=== PATIENT | female | born 1945 | race Caucasian/White ===

== ENCOUNTER 2022-12-02 18:27 | Inpatient (IN) ==
[2022-12-02 20:27] LABS: Basophils # (auto) 0.05 K/uL (0-0.2); Basophils % (auto) 0.7 %; Eosinophils # (auto) 0.14 K/uL (0-0.50); Hematocrit (blood only) 49.9 % (34.1-44.9); Hemoglobin 17.3 g/dl (12.0-16.0); Immature Granulocytes # (auto) 0.01 K/uL (0.00-0.02); Immature Granulocytes % (auto) 0.1 %; Lymphocytes # (auto) 1.86 K/uL (1.2-3.4); Lymphocytes % (auto) 27.2 %; Mean Corpuscular Hgb Conc 34.7 g/dL (32.0-36.0); Mean Corpuscular Volume 86.5 fL (80.0-100.0); Mean Platelet Volume 9.8 fL (9.4-12.3); Monocytes # (auto) 0.55 K/uL (0.24-0.82); Monocytes % (auto) 8.1 %; Neutrophils # (auto) 4.22 K/uL (1.4-6.5); Neutrophils % (auto) 61.9 %; Platelet Count 232 K/uL (130-400); RDW Standard Deviation 37.7 fL (36.4-46.3); Red Blood Count 5.77 M/uL (3.93-5.22); White Blood Count 6.83 K/ul (4.8-10.8)
[2022-12-02 20:40] LABS: INR 1.1 (0.9-1.1); Partial Thromboplastin Time 26.9 Seconds (21.0-31.0); Prothrombin Time 11.4 Seconds (9.0-12.0)
--- NOTE | 2022-12-02 20:43 | XRay Report ---
XR chest 1V portable HISTORY: heart issues COMPARISON: None. FINDINGS: The lungs are clear. Cardiac silhouette is normal in size. No pleural effusions. No pneumot horax. IMPRESSION: No acute process. ACT 112: Negative or not required by law. Electronically signed by: Dhruv Houser M.D. 12/02/2022 8:42 PM
[2022-12-02 20:52] LABS: Troponin I High Sensitivity 7.1 pg/ml (0-14)
[2022-12-02 21:12] LABS: Albumin Globulin Ratio 1.3 (0.9-2); Albumin Level 4.6 gm/dl (3.4-5.0); BUN Creatinine Ratio 21.8 (10-20); Bilirubin,Total 0.5 mg/dl (0.2-1.0); Calcium 9.8 mg/dl (8.5-10.1); Creatinine Clr Calc Pharmacy 52.2 ml/min; Est GFR (African American) 83.8 ml/min; Est GFR (Non-African American) 72.3 ml/min; Globulin 3.6 gm/dl (2.5-4.0); Total Protein 8.2 gm/dl (6.0-8.3)
[2022-12-02] MEDS ORDERED: Heparin IV Adult Wt-Based Standard *NO* Bolus Protocol IV ONE (22:01)
--- NOTE | 2022-12-02 22:01 | Emergency Department Note ---
Impression & Plan New onset a-fib, Dizziness ED Provider Note NAME: QASIM PETERS AGE: 77 SEX: F : 1945 ARRIVES VIA: Walk-In INFORMANT: Patient, ED PROVIDER(S): Dereje Figueroa MD CHIEF COMPLAINT: Outpatient referral, abnormal EKG MEDICAL DECISION MAKING: Patient presents due to concern for an abnormal EKG which showed A. fib and was referred here for further evaluation and treatment. Patient did have blood work completed and was seen in a triage area as there were no rooms in which the patient could be seen initially. Blood work was reviewed and fairly unremarkable. EKG does show A. fib. The patient has no prior medical problems or history. I did speak with nursing to ensure that the patient could be roomed. The patient was subsequently roomed. Heparin was ordered. I did speak the on-call hospitalist Dr. Gutierrez and the patient was admitted to the medicine service. Critical Care: I have personally spent 45 minutes of critical care time in direct management of this patient. This includes bedside care, interpretation of diagnostic studies, and testing, discussion with consultants, patient, and family members, and other require inpatient management activities. This 4 minutes is in excess of all separately billable procedures. Prior /Outside records reviewed: none Differential diagnosis: Benign positional vertigo, arrythmia, dehydration, hypovolemia, anemia, tumor, infection, hypoglycemia, electrolyte abnormalities, cardiac sources, intracerebral event, toxicologic, neurologic, as well as other pathologies. Diagnostics, as interpreted by me: ECG: A fib, rate of 90, normal QRS, Left axis deviation, nonspecific T abnormality Cardiac monitoring: An order was placed for continuous cardiac monitoring. The monitor shows a rate of 85 with irregular rhythm. Patient was placed on pulse oximetry Medical decision rules: none Imaging studies: See below HPI: Patient presents due to concern for abnormal outpatient EKG. The patient did have a bout of dizziness several days ago and it followed up for an evaluation. EKG was performed which did show the A. fib. The patient denies any prior history of palpitations or arrhythmia. Patient denies any falls or trauma. Patient does not take any medications on a regular basis and has no known past medical or surgical history. Patient denies any alcohol tobacco or drug use no supplements or stimulants. The patient denies any syncope or presyncope. Patient has no strokelike symptoms. Patient does not take blood thinning medications. No additional exacerbating or remitting factors. Patient is accompanied by her today. PAST MEDICAL HISTORY: See Below PAST SURGICAL HISTORY: See Below SOCIAL HISTORY: See Below HOME MEDICATIONS: See Below ALLERGIES: See Below VITALS: See Below PHYSICAL EXAMINATION: GENERAL: NAD, wearing a mask, non-toxic. Wearing glasses. EYE EXAM: Normal conjunctiva. PERRL, no anisocoria and EOM's grossly intact w/o pain. NECK: Supple, no nuchal rigidity, no adenopathy, non-tender. No signs of meningismus. FROM of the neck with good chin to chest and neck extension. No stridor. LUNGS: Clear to auscultation. Normal chest wall mechanics. HEART: Irregularly irregular, no MRG. ABDOMEN: Abdomen soft, non-tender, normo-active bowel sounds, no masses, no rebound or guarding. BACK: No CVA TTP. SKIN: No rashes and no bruising. UPPER EXTREMITIES: Upper extremities are grossly normal. LOWER EXTREMITIES: Grossly normal, no edema. NEURO EXAM: A&O x3, cranial nerves II-XII grossly intact, normal speech, moves all 4 extremities. 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 Required: No Beliefs That Will Affect Care: None Current Living Situation: Spouse Feels Safe at Home: Yes Safety Concerns: Feels Safe At This Time Assistive Devices: None Allergies Allergies Allergy/AdvReac Type Severity Reaction Status Date / Time No Known Allergies Allergy Verified 12/02/22 22:26 Home Meds Home Medications Medication Instructions Recorded Confirmed multivitamin 1 tab PO DAILY 12/02/22 12/02/22 Previous Rx's Medication Instructions Recorded apixaban 5 mg tablet (Eliquis) 5 mg PO BID #90 tabs 12/03/22 metoprolol succinate 25 mg 12.5 mg PO DAILY #30 tabs 12/03/22 tablet,extended release 24 hr Results & Data (ED) Vital Signs Vital Signs - 24 hr 12/02/22 18:34 Temperature 35.9 C L Temperature Source Temporal Artery Scan Pulse Rate 91 H Respiratory Rate 19 Respiratory Effort / Characteristics Non-Labored Spontaneous Respiratory Depth Normal Blood Pressure 161/94 H Blood Pressure Mean 116 Pulse Oximetry 97 Oxygen Delivery Method Room Air Sepsis Recent Fever Within 48 Hours No Sepsis New/Unexplained Change in Mental Status N/A Sepsis Action Taken by Nursing No Action Required Home Medications Current Medication List: was personally reviewed by me Laboratory Data Attestation: I reviewed the patient's lab results. 12/02/22 20:06 12/02/22 20:06 Lab Results 12/02/22 12/02/22 12/02/22 Range/Units 20:06 20:06 20:06 WBC 6.83 (4.8-10.8) K/ul RBC 5.77 H (3.93-5.22) M/uL Hgb 17.3 H (12.0-16.0) g/dl Hct 49.9 H (34.1-44.9) % MCV 86.5 (80.0-100.0) fL MCH 30.0 (25.0-34.0) pg MCHC 34.7 (32.0-36.0) g/dL RDW Std Deviation 37.7 (36.4-46.3) fL RDW Coeff of Isabela 12.0 (11.5-14.5) % Plt Count 232 (130-400) K/uL MPV 9.8 (9.4-12.3) fL Immature Gran % (Auto) 0.1 % Neut % (Auto) 61.9 % Lymph % (Auto) 27.2 % [place] % (Auto) 8.1 % Eos % (Auto) 2.0 % Baso % (Auto) 0.7 % Neut # (Auto) 4.22 (1.4-6.5) K/uL Lymph # (Auto) 1.86 (1.2-3.4) K/uL [place] # (Auto) 0.55 (0.24-0.82) K/uL Eos # (Auto) 0.14 (0-0.50) K/uL Baso # (Auto) 0.05 (0-0.2) K/uL Immature Gran # (Auto) 0.01 (0.00-0.02) K/uL PT 11.4 (9.0-12.0) Seconds INR 1.1 (0.9-1.1) APTT 26.9 (21.0-31.0) Seconds PTT Ratio 1.0 Sodium 141 (136-145) mmol/L Potassium 4.0 (3.5-5.1) mmol/L Chloride 105 (98-107) mmol/L Carbon Dioxide 28 (21-32) mmol/L Anion Gap 8 (3-11) BUN 17 (6-23) mg/dl Creatinine 0.78 (0.6-1.2) mg/dl Est Cr Clr Drug Dosing 52.2 ml/min Est GFR ( Amer) 83.8 ml/min Est GFR (Non-Af Amer) 72.3 ml/min BUN/Creatinine Ratio 21.8 H (10-20) Glucose 105 H (70-99(Fasting)) mg/dl Calcium 9.8 (8.5-10.1) mg/dl Total Bilirubin 0.5 (0.2-1.0) mg/dl AST 25 (13-39) U/L ALT 23 (7-52) U/L Alkaline Phosphatase 92 (34-104) U/L Troponin I High Sens 7.1 (0-14) pg/ml Total Protein 8.2 (6.0-8.3) gm/dl Albumin 4.6 (3.4-5.0) gm/dl Globulin 3.6 (2.5-4.0) gm/dl Albumin/Globulin Ratio 1.3 (0.9-2) SARS-CoV-2, RNA, NAAT (NEGATIVE) 12/02/22 Range/Units 22:30 WBC (4.8-10.8) K/ul RBC (3.93-5.22) M/uL Hgb (12.0-16.0) g/dl Hct (34.1-44.9) % MCV (80.0-100.0) fL MCH (25.0-34.0) pg MCHC (32.0-36.0) g/dL RDW Std Deviation (36.4-46.3) fL RDW Coeff of Isabela (11.5-14.5) % Plt Count (130-400) K/uL MPV (9.4-12.3) fL Immature Gran % (Auto) % Neut % (Auto) % Lymph % (Auto) % [place] % (Auto) % Eos % (Auto) % Baso % (Auto) % Neut # (Auto) (1.4-6.5) K/uL Lymph # (Auto) (1.2-3.4) K/uL [place] # (Auto) (0.24-0.82) K/uL Eos # (Auto) (0-0.50) K/uL Baso # (Auto) (0-0.2) K/uL Immature Gran # (Auto) (0.00-0.02) K/uL PT (9.0-12.0) Seconds INR (0.9-1.1) APTT (21.0-31.0) Seconds PTT Ratio Sodium (136-145) mmol/L Potassium (3.5-5.1) mmol/L Chloride (98-107) mmol/L Carbon Dioxide (21-32) mmol/L Anion Gap (3-11) BUN (6-23) mg/dl Creatinine (0.6-1.2) mg/dl Est Cr Clr Drug Dosing ml/min Est GFR ( Amer) ml/min Est GFR (Non-Af Amer) ml/min BUN/Creatinine Ratio (10-20) Glucose (70-99(Fasting)) mg/dl Calcium (8.5-10.1) mg/dl Total Bilirubin (0.2-1.0) mg/dl AST (13-39) U/L ALT (7-52) U/L Alkaline Phosphatase (34-104) U/L Troponin I High Sens (0-14) pg/ml Total Protein (6.0-8.3) gm/dl Albumin (3.4-5.0) gm/dl Globulin (2.5-4.0) gm/dl Albumin/Globulin Ratio (0.9-2) SARS-CoV-2, RNA, NAAT NEGATIVE (NEGATIVE) Administered Medications Discontinued Medications Apixaban (Apixaban 5 Mg Tablet) 5 mg PO BID YULIA Stop: 01/02/23 09:59 Last Admin: 12/03/22 11:35 Dose: 5 mg Documented By: MAT Heparin Sodium/Dextrose (Heparin Iv Adult Wt-Based Standard *No* Bolus Protocol) 1 each IV ONE ONE; Protocol Stop: 12/02/22 22:02 Last Admin: 12/02/22 22:27 Dose: 1 each Documented By: ETHAN Heparin Sodium/Dextrose (Heparin Sodium/Dextrose) 25,000 units in 500 mls @ 20 mls/hr IV .Q24H YULIA; Protocol Stop: 01/01/23 22:29 Last Titration: 12/03/22 11:30 Dose: 0 units/hr, 0 mls/hr Documented By: MAT Co-signed By: LILIAM Titration: 12/03/22 05:45 Dose: 1,050 units/hr, 21 mls/hr Documented By: JANY Co-signed By: ANGEL Admin: 12/02/22 22:26 Dose: 1,000 units/hr, 20 mls/hr Documented By: ETHAN Co-signed By: KWABENA Dextrose/Sodium Chloride (D5w And 1/2nss) 1,000 mls @ 80 mls/hr IV .[id number] [facility] Stop: 12/03/22 13:46 Last Admin: 12/03/22 02:05 Dose: 80 mls/hr Documented By: JANY Metoprolol Succinate (Metoprolol Succ 25mg Ext Rel Tab) 12.5 mg PO QAM [facility] Stop: 01/02/23 09:44 Last Admin: 12/03/22 11:36 Dose: 12.5 mg Documented By: MAT Miscellaneous (Stop Order) 1 each N/A ONE ONE Stop: 12/03/22 10:01 Last Admin: 12/03/22 11:36 Dose: 1 each Documented By: MAT Multivitamins (Multivitamin Tab) 1 tab PO DAILY [facility] Stop: 01/02/23 08:59 Last Admin: 12/03/22 08:43 Dose: Not Given Documented By: MAT Imaging Data Radiologist's Impression: Chest X-Ray 12/02/22 18:37 XR chest 1V portable HISTORY: heart issues COMPARISON: None. FINDINGS: The lungs are clear. Cardiac silhouette is normal in size. No pleural effusions. No pneumothorax. IMPRESSION: No acute process. ACT 112: Negative or not required by law. Electronically signed by: Dhruv Houser M.D. 12/02/2022 8:42 PM Discharge Plan Visit Data Chief Complaint: Abnormal Labs/Diagnostic Testing Stated Complaint: REF BY DOC,ABNORMAL LABS ED Provider: Dereje Figueroa Discharge Problem: New onset a-fib, Dizziness Patient Disposition: Admitted As Inpatient Discharge Instructions Interventions: ED Discharge Assessment Last Done: 12/03/22 01:12
[2022-12-02] MEDS ORDERED: HEPARIN SODIUM/DEXTROSE 25,000 UNITS/500 ML BAG IV SCH (22:30)
[2022-12-03] MEDS ORDERED: POLYETHYLENE (MIRALAX) 17 GM PACK PO PRN (01:17)
[2022-12-03] MEDS ORDERED: D5W AND 1/2NSS 1,000 ML IV SCH (01:17)
[2022-12-03] MEDS ORDERED: ACETAMINOPHEN 325 MG TAB PO PRN (01:17)
[2022-12-03] MEDS ORDERED: METOPROLOL TARTRATE 1 MG/ML VIAL IV PRN (01:17)
[2022-12-03] MEDS ORDERED: NITROGLYCERIN SL 0.4 MG/TAB TAB SL PRN (01:17)
[2022-12-03 04:57] LABS: Basophils # (auto) 0.05 K/uL (0-0.2); Basophils % (auto) 0.6 %; Eosinophils # (auto) 0.21 K/uL (0-0.50); Eosinophils % (auto) 2.5 %; Hematocrit (blood only) 43.1 % (34.1-44.9); Hemoglobin 15.1 g/dl (12.0-16.0); Immature Granulocytes # (auto) 0.02 K/uL (0.00-0.02); Immature Granulocytes % (auto) 0.2 %; Lymphocytes # (auto) 3.52 K/uL (1.2-3.4); Lymphocytes % (auto) 42.4 %; Mean Corpuscular Volume 85.7 fL (80.0-100.0); Mean Platelet Volume 9.7 fL (9.4-12.3); Monocytes # (auto) 0.53 K/uL (0.24-0.82); Monocytes % (auto) 6.4 %; Neutrophils # (auto) 3.97 K/uL (1.4-6.5); Neutrophils % (auto) 47.9 %; Platelet Count 192 K/uL (130-400); RDW Coefficient of Variation 11.9 % (11.5-14.5); RDW Standard Deviation 36.9 fL (36.4-46.3); Red Blood Count 5.03 M/uL (3.93-5.22)
[2022-12-03 05:25] LABS: Partial Thromboplastin Ratio 1.7
[2022-12-03 05:28] LABS: BUN Creatinine Ratio 22.7 (10-20); Calcium 8.7 mg/dl (8.5-10.1); Chol HDL Ratio 6.1 (0-5); Creatinine Clr Calc Pharmacy 61.5 ml/min; Est GFR (African American) 97.4 ml/min; Magnesium 2.2 mg/dl (1.7-2.4); Partial Thromboplastin Time 45.8 Seconds (21.0-31.0); Potassium 3.6 mmol/L (3.5-5.1); Troponin I High Sensitivity 5.6 pg/ml (0-14)
--- NOTE | 2022-12-03 08:11 | History and Physical Report ---
DATE OF ADMISSION: 12/02/2022. CHIEF COMPLAINT: Dizziness, new onset atrial fibrillation. HISTORY OF PRESENT ILLNESS: A 77-year-old female with past medical history significant for hyperlipidemia, currently not on any medications, history of uterovaginal prolapse, history of colonic polyps, went to PCP today because of dizziness. The patient says she has had dizziness couple of nights ago, she slept in the morning she was fine.She went to PCP today and the EKG done, which shows new AFib and was sent here. Rates are under control. The patient currently has no dizziness. Denies any chest pain, no shortness of breath, no cough, no earaches, no runny nose, no sore throat. Appetite is okay. No nausea, no abdominal pain. Normal bowel and bladder movements. No swelling in the legs. Resting comfortably and hemodynamically stable. ALLERGIES: No known drug allergies. PAST MEDICAL HISTORY: As mentioned above. PAST SURGICAL HISTORY: Colonoscopy, EGDs, appendectomy, repair of incisional hernia. MEDICATIONS: The patient on multivitamins daily. FAMILY HISTORY: Significant for mother has rheumatoid arthritis, diabetes; father had colon cancer diagnosed at age of 72; brother has diabetes; sister has diabetes; daughter has kidney cancer. SOCIAL HISTORY: , no smoking, no alcohol, no drug use. REVIEW OF SYSTEMS: As per HPI. Rest of review of systems is negative. PHYSICAL EXAMINATION: GENERAL: The patient is of moderate build, not in acute distress. VITAL SIGNS: Temperature 35.9, pulse 83, respiratory rate 18, blood pressure 156/88, oxygen 97% on room air. HEENT: Pupils equal, round and reactive to light. Oral mucosa moist. NECK: No JVD, no neck masses. CARDIOVASCULAR: S1 and S2 heard. Regular rate and rhythm. No murmur, no gallop. RESPIRATORY SYSTEM: Normal AP diameter. No accessory muscle use. No wheezing or crackles. ABDOMEN: Soft, bowel sounds present, nontender, no distention. CENTRAL NERVOUS SYSTEM: Cranial nerves II-XII grossly intact, nonfocal. EXTREMITIES: No edema, no erythema. LABORATORY DATA: WBC 6.8, hemoglobin 17.3, hematocrit 49.9, platelets 232. PT 11.4, INR 1.1, APTT 26.9. Sodium 141, potassium 4, chloride 105, bicarbonate 28, BUN 17, creatinine 0.7, serum glucose 105, calcium 9.8, total bilirubin 0.5, AST 25, ALT 23, alkaline phosphatase 92. Troponin I high sensitivity 7.1. SARS-CoV-2 rapid test pending. IMAGING DATA: Chest x-ray, no acute findings. EKG: AFib at the rate of 90, left axis deviation. ASSESSMENT AND PLAN: This is a 77-year-old female who presents with new onset atrial fibrillation. 1. Dizziness, new onset atrial fibrillation, currently dizziness is resolved. Went to the PCP today for the dizziness and found to have atrial fibrillation, rate is under control. Started on IV heparin which will be continued. We will follow echocardiogram, serial cardiac enzymes. We will keep her n.p.o. until seen by Cardiology. IV Lopressor p.r.n. as the rate are controlled currently. 2. Hypertension, could be situational. Blood pressure is running high. We will monitor. 3. History of hyperlipidemia, not on any medication. Follow lipid profile. 4. Deep venous thrombosis prophylaxis: On IV heparin. DISPOSITION: Admit to tele floor. PT/OT prior to discharge. Social service to help with discharge planning. Level 1 full code. Job ID: [id number] [facility]
[2022-12-03] MEDS ORDERED: MULTIVITAMIN TAB PO SCH (09:00)
[2022-12-03] MEDS ORDERED: METOPROLOL SUCC 25MG EXT REL TAB PO SCH (09:45)
[2022-12-03] MEDS ORDERED: APIXABAN 5 MG TABLET PO SCH (10:00)
--- NOTE | 2022-12-03 10:20 | Cardiology Consultation ---
Date of Consultation December 03, 2022 Assessment & Plan (1) Atrial fibrillation with controlled ventricular rate: (2) Hypertension: (3) Dyslipidemia: Plan Patient presenting from PCP office with new onset atrial fibrillation, duration unknown. Controlled rates at rest, with mild elevation with activity. She is currently asymptomatic. Long discussion today in regards to pathophysiology and treatment options of atrial fibrillation. Since the duration is unknown and she is asymptomatic, would recommend ongoing rate control and anticoagulation for at least 4 weeks. At that time, could consider DCCV as an outpatient. [id number] score of 4 (sex, age, HTN) with recommendations for usp anticoagulation. She is agreeable. IV heparin to be discontinued and Eliquis 5 mg BID initiated this morning Start metoprolol succinate 12.5 mg daily for rate control and HTN. Titrate as tolerated/needed. She has significantly uncontrolled lipids and likely will require statin. it appears she previously declined therapy as an outpatient in 2020. Since we are starting 2 new medications at this time (metoprolol and Eliquis), will await to initiate as outpatient. Await echo results, currently pending. Recommend patient ambulating in the hallways and as long as HR's are controlled, and she is feeling well, ancipitate discharge later today with the above medications. Will see patient in 2-4 weeks for hospital f/u. Case discussed with Dr. Tello. Supervising Physician Co-Signing Physician Notes Patient seen and examined with Tatiana Valdez PA-C. Agree with findings and assessment as above. Pt asymptomatic with newly discovered afib. Will follow a rate control strategy currently, recommendations as above. History of Present Illness Reason for Consultation: Atrial fibrillation Requesting Physician: Dr. Gutierrez Attending Physician: Dr. Tello History of Present Illness Patient is a 77-year-old female who was admitted to [facility] after presenting to PCP office with complaints of "dizziness" and the room spinning, with history of vertigo. She was incidentally found to have atrial fibrillation on EKG in the office, rates controlled. Due to symptoms, she was referred to ER for evaluation. In the ER her dizziness resolved with IV fluids. EKG once again demonstrated atrial fib with controlled ventricular rates. Labs were unremarkable including HS troponin and electrolytes. No ischemic changes on EKG She was started on IV heparin and IV metoprolol PRN. She denies cardiac history of arrhythmias, CHF, valvular heart disease, or CAD. She had an echo in 2014 with normal LVEF and no significant valvular disease. She denies symptoms of palpitations or tachypalpitations. No decline in her functional capacity recently. No SOB/dyspnea or chest pain. She takes no medications on a regular basis. No significant past medical history. She denies history of TIA/CVA, history of anemia or bleeding issues. No DM. She has never been treated for hypetension or dyslipidemia. At time of consult, patient resting in bed feeling well. Denies recurrent dizziness or lightheadedness. No palpitations or tachypalpitations. HR is controlled at rest. No chest pain Or SOB. Echo results pending. Allergies Allergy/AdvReac Type Severity Reaction Status Date / Time No Known Allergies Allergy Verified 12/02/22 22:26 Home Medications Medication Instructions Recorded Confirmed Type multivitamin 1 tab PO DAILY 12/02/22 12/02/22 History apixaban 5 mg tablet (Eliquis) 5 mg PO BID #90 tabs 12/03/22 Rx metoprolol succinate 25 mg 12.5 mg PO DAILY #30 tabs 12/03/22 Rx tablet,extended release 24 hr Patient History Medical History No pertinent past medical history Surgical History No pertinent past surgical history Social History Smoking Status: Never smoker Second Hand Exposure: No; Do You Dip or Chew Tobacco: No; Hx Alcohol Use: No Hx Substance Use: No Preferred Language: Irish Communication Ability: Effective Process Worker Required: No Beliefs That Will Affect Care: None Current Living Situation: Spouse Feels Safe at Home: Yes Safety Concerns: Feels Safe At This Time Assistive Devices: None Review of Systems Review of Systems: All systems reviewed & are unremarkable except as noted in HPI & below Physical Exam Constitutional: WD/WN, vitals as above well developed; no acute distress Neck: trachea midline, no thyromegaly Respiratory: normal respiratory effort, lungs clear to auscultation Cardiovascular: Rate/Rhythm: + irregularly irregular Heart Sounds: no murmur Vessels: no JVD Extremities: no edema Gastrointestinal (Abdomen): normal bowel sounds, soft, nontender, no hepatosplenomegaly Skin: no rashes, warm and dry Psychiatric: A+Ox3, euthymic affect Results & Data ([facility]) Vital Signs (Past 12 Hours) Vital Signs Temp Pulse Pulse Resp BP BP Pulse Ox 12/03/22 07:50 12/03/22 06:00 75 17 129/98 12/03/22 04:00 36.5 C 89 25 H 122/81 98 12/03/22 05:00 75 18 12/03/22 04:34 82 22 12/03/22 04:00 79 12 122/81 12/03/22 03:00 69 16 12/03/22 02:00 81 16 12/03/22 01:30 79 20 168/91 H 12/03/22 01:17 71 12/03/22 01:17 12/03/22 01:36 36.5 C 79 20 168/91 H 96 12/03/22 01:00 82 18 94 12/03/22 01:00 162/79 H 12/03/22 00:30 68 16 12/03/22 00:30 149/101 H 12/03/22 00:00 82 15 95 12/03/22 00:00 149/86 H 12/02/22 23:30 76 23 12/02/22 23:30 148/74 H 12/02/22 23:15 76 21 96 12/02/22 23:00 89 23 95 12/02/22 23:00 158/89 H 12/02/22 22:45 88 22 97 12/02/22 22:33 83 18 156/88 H 97 O2 Del Method 12/03/22 07:50 Room Air 12/03/22 06:00 12/03/22 04:00 Room Air 12/03/22 05:00 12/03/22 04:34 12/03/22 04:00 12/03/22 03:00 12/03/22 02:00 12/03/22 01:30 12/03/22 01:17 12/03/22 01:17 Room Air 12/03/22 01:36 Room Air 12/03/22 01:00 12/03/22 01:00 12/03/22 00:30 12/03/22 00:30 12/03/22 00:00 12/03/22 00:00 12/02/22 23:30 12/02/22 23:30 12/02/22 23:15 12/02/22 23:00 12/02/22 23:00 12/02/22 22:45 12/02/22 22:33 Room Air Laboratory Results Laboratory Results WBC 8.30 K/ul (4.8-10.8) 12/03/22 04:43 RBC 5.03 M/uL (3.93-5.22) 12/03/22 04:43 Hgb 15.1 g/dl (12.0-16.0) 12/03/22 04:43 Hct 43.1 % (34.1-44.9) 12/03/22 04:43 MCV 85.7 fL (80.0-100.0) 12/03/22 04:43 MCH 30.0 pg (25.0-34.0) 12/03/22 04:43 MCHC 35.0 g/dL (32.0-36.0) 12/03/22 04:43 RDW Std Deviation 36.9 fL (36.4-46.3) 12/03/22 04:43 RDW Coeff of Isabela 11.9 % (11.5-14.5) 12/03/22 04:43 Plt Count 192 K/uL (130-400) 12/03/22 04:43 MPV 9.7 fL (9.4-12.3) 12/03/22 04:43 Immature Gran % (Auto) 0.2 % 12/03/22 04:43 Neut % (Auto) 47.9 % 12/03/22 04:43 Lymph % (Auto) 42.4 % 12/03/22 04:43 Stearns % (Auto) 6.4 % 12/03/22 04:43 Eos % (Auto) 2.5 % 12/03/22 04:43 Baso % (Auto) 0.6 % 12/03/22 04:43 Neut # (Auto) 3.97 K/uL (1.4-6.5) 12/03/22 04:43 Lymph # (Auto) 3.52 K/uL (1.2-3.4) H 12/03/22 04:43 Stearns # (Auto) 0.53 K/uL (0.24-0.82) 12/03/22 04:43 Eos # (Auto) 0.21 K/uL (0-0.50) 12/03/22 04:43 Baso # (Auto) 0.05 K/uL (0-0.2) 12/03/22 04:43 Immature Gran # (Auto) 0.02 K/uL (0.00-0.02) 12/03/22 04:43 PT 11.4 Seconds (9.0-12.0) 12/02/22 20:06 INR 1.1 (0.9-1.1) 12/02/22 20:06 APTT 45.8 Seconds (21.0-31.0) H* 12/03/22 04:43 PTT Ratio 1.7 12/03/22 04:43 Sodium 139 mmol/L (136-145) 12/03/22 04:43 Potassium 3.6 mmol/L (3.5-5.1) 12/03/22 04:43 Chloride 107 mmol/L (98-107) 12/03/22 04:43 Carbon Dioxide 27 mmol/L (21-32) 12/03/22 04:43 Anion Gap 5 (3-11) 12/03/22 04:43 BUN 15 mg/dl (6-23) 12/03/22 04:43 Creatinine 0.66 mg/dl (0.6-1.2) 12/03/22 04:43 Est Cr Clr Drug Dosing 61.5 ml/min 12/03/22 04:43 Est GFR ( Amer) 97.4 ml/min 12/03/22 04:43 Est GFR (Non-Af Amer) 84.0 ml/min 12/03/22 04:43 BUN/Creatinine Ratio 22.7 (10-20) H 12/03/22 04:43 Glucose 119 mg/dl (70-99(Fasting)) H 12/03/22 04:43 Calcium 8.7 mg/dl (8.5-10.1) 12/03/22 04:43 Magnesium 2.2 mg/dl (1.7-2.4) 12/03/22 04:43 Total Bilirubin 0.5 mg/dl (0.2-1.0) 12/02/22 20:06 AST 25 U/L (13-39) 12/02/22 20:06 ALT 23 U/L (7-52) 12/02/22 20:06 Alkaline Phosphatase 92 U/L (34-104) 12/02/22 20:06 Troponin I High Sens 5.6 pg/ml (0-14) 12/03/22 04:43 Total Protein 8.2 gm/dl (6.0-8.3) 12/02/22 20:06 Albumin 4.6 gm/dl (3.4-5.0) 12/02/22 20:06 Globulin 3.6 gm/dl (2.5-4.0) 12/02/22 20:06 Albumin/Globulin Ratio 1.3 (0.9-2) 12/02/22 20:06 Triglycerides 145 mg/dl (0-150) 12/03/22 04:43 Cholesterol 255 mg/dl (0-200) H 12/03/22 04:43 LDL Cholesterol, Calc 184 mg/dl 12/03/22 04:43 VLDL Cholesterol, Calc 29 mg/dl (0-30) 12/03/22 04:43 HDL Cholesterol 42 mg/dl 12/03/22 04:43 Cholesterol/HDL Ratio 6.1 (0-5) H 12/03/22 04:43 SARS-CoV-2, RNA, NAAT NEGATIVE (NEGATIVE) 12/02/22 22:30 Impressions Chest X-Ray 12/02/22 18:37 XR chest 1V portable HISTORY: heart issues COMPARISON: None. FINDINGS: The lungs are clear. Cardiac silhouette is normal in size. No pleural effusions. No pneumothorax. IMPRESSION: No acute process. ACT 112: Negative or not required by law. Electronically signed by: Dhruv Houser M.D. 12/02/2022 8:42 PM Diagnostic Findings Telemetry reviewed: Atrial fibrillation with controlled rates ranging 80-100 bpm at rest Repeat EKG this morning, 12/03/22: Atrial fibrillation Left axis deviation Low voltage QRS Septal infarct (cited on or before 02-DEC-2022) Possible Lateral infarct (cited on or before 02-DEC-2022) EKG on arrival to ER 12/02/22: Atrial fibrillation Left axis deviation Minimal voltage criteria for LVH, may be normal variant Septal infarct Poor R wave progression EKG completed at PCP office yesterday, 12/02/22: Atrial fibrillation Left axis deviation Nonspecific T wave abnormality Abnormal ECG When compared with ECG of 07-JUN-2015 10:47, Atrial fibrillation has replaced Sinus rhythm Criteria for Septal infarct are no longer Present Echo report reviewed dated June 2015: Normal LV chamber size with mild LVH Normal LV systolic function without wall motion abnormalities. LVEF 56% Grade I diastolic dysfunction No significant valvular disease Medications Administered Current Inpatient Medications Acetaminophen (Acetaminophen 325 Mg Tab) 650 mg PO Q4H PRN PRN Reason: Pain or Fever Stop: 01/02/23 01:16 Apixaban (Apixaban 5 Mg Tablet) 5 mg PO BID [facility] Stop: 01/02/23 09:59 Dextrose/Sodium Chloride (D5w And 1/2nss) 1,000 mls @ 80 mls/hr IV .[id number] [facility] Stop: 12/03/22 13:46 Last Admin: 12/03/22 02:05 Dose: 80 mls/hr Metoprolol Succinate (Metoprolol Succ 25mg Ext Rel Tab) 12.5 mg PO QAM [facility] Stop: 01/02/23 09:44 Metoprolol Tartrate (Metoprolol Tartrate 1 Mg/Ml Vial) 5 mg IV Q6 PRN PRN Reason: Tachycardia Stop: 01/02/23 01:16 Multivitamins (Multivitamin Tab) 1 tab PO DAILY [facility] Stop: 01/02/23 08:59 Last Admin: 12/03/22 08:43 Dose: Not Given Nitroglycerin (Nitroglycerin Sl 0.4 Mg/Tab Tab) 0.4 mg SL UD PRN PRN Reason: Chest Pain Stop: 01/02/23 01:16 Polyethylene Glycol (Polyethylene (Miralax) 17 Gm Pack) 17 gm PO DAILY PRN PRN Reason: Constipation Stop: 01/02/23 01:16
[2022-12-03 12:43] LABS: Partial Thromboplastin Ratio 2.2
--- NOTE | 2022-12-03 13:58 | Discharge Summary ---
Discharge Summary Date of Service December 03, 2022 Notes For Next Care Provider Please ensure follow up with Cardiology outpatient Medication Changes From Visit Started on metoprolol succinate for rate control Started on apixaban for stroke prophylaxis Admission HPI Per Admitting Provider 77-year-old female with past medical history significant for hyperlipidemia, currently not on any medications, history of uterovaginal prolapse, history of colonic polyps, went to PCP today because of dizziness. The patient says she has had dizziness couple of nights ago, she slept in the morning she was fine.She went to PCP today and the EKG done, which shows new AFib and was sent here. Rates are under control. The patient currently has no dizziness. Denies any chest pain, no shortness of breath, no cough, no earaches, no runny nose, no sore throat. Appetite is okay. No nausea, no abdominal pain. Normal bowel and bladder movements. No swelling in the legs. Resting comfortably and hemodynamically stable. Admission Exam Per Admitting Provider GENERAL: The patient is of moderate build, not in acute distress. VITAL SIGNS: Temperature 35.9, pulse 83, respiratory rate 18, blood pressure 156/88, oxygen 97% on room air. HEENT: Pupils equal, round and reactive to light. Oral mucosa moist. NECK: No JVD, no neck masses. CARDIOVASCULAR: S1 and S2 heard. Regular rate and rhythm. No murmur, no gallop. RESPIRATORY SYSTEM: Normal AP diameter. No accessory muscle use. No wheezing or crackles. ABDOMEN: Soft, bowel sounds present, nontender, no distention. CENTRAL NERVOUS SYSTEM: Cranial nerves II-XII grossly intact, nonfocal. EXTREMITIES: No edema, no erythema. Principal Dx & Hospital Course #1 = Principal Diagnosis (1) Atrial fibrillation with controlled ventricular rate: (2) Hypertension: (3) Dyslipidemia: Plan Patient was found to have Atrial fibrillation on presentation Troponin trend was normal She was started on heparin drip for stroke prophylaxis She was evaluated by Cardiology and started on metoprolol succinate. Anticoagulation was changed to eliquis Patient currently has no complaints during my evaluation Reported dizziness had resolved She appeared forgetful I was able to call the Román who reported patient is usually forgetful and that is not new. I updated him about findings and educated him on plans Patient will need to follow up with Cardiology outpatient Has hyperlipidemia based on Lipid panel today. Per Cardiology, patient had declined statin in the past. Cardiology plan to reeval hyperlipidemia management outpatient Echocardiogram reviewed. Patient discharged home. Discharge Exam Constitutional + well hydrated; no acute distress Eyes PERRL, conjunctivae normal, anicteric sclerae ENMT external ear and nose normal, oropharynx normal Respiratory normal respiratory effort, lungs clear to auscultation Cardiovascular Rate/Rhythm: + irregularly irregular S1 S2 Gastrointestinal (Abdomen) normal bowel sounds, soft, nontender, no hepatosplenomegaly Musculoskeletal no cyanosis or clubbing, extremities motor strength 5/5 Neurologic PERRL, EOMI, accommodation nl, no face palsy, no dysarthria Psychiatric Orientation: alert, oriented to person and oriented to place (Knows she is in the hospital but does not recall name) oriented to month but not day or year. Updated Medication List Medication Instructions Recorded Confirmed Type multivitamin 1 tab PO DAILY 12/02/22 12/02/22 History apixaban 5 mg tablet (Eliquis) 5 mg PO BID #90 tabs 12/03/22 Rx metoprolol succinate 25 mg 12.5 mg PO DAILY #30 tabs 12/03/22 Rx tablet,extended release 24 hr Hospital Stay Data Consultations 12/02/22 22:01 ED Decision to Admit Stat 12/03/22 08:00 Consult Cardiology Routine Pending Results Patient Have Any Pending Studies at Discharge: No Discharge Instructions Given to Patient (Per Discharging Provider) Mrs Rogers You came to the hospital from your Primary Doctor's office where you had presented with dizziness. You were evaluated and found to have abnormal heart rhythm called Atrial Fibrillation (Afib) You were started on metoprolol succinate for rate control. You were also started on a blood thinner called eliquis (apixaban) to reduce risk of stroke. Please ensure your doctors/dentists know you are on blood thinner prior to any surgical procedure. Please ensure follow up with your Primary Doctor Please ensure you follow up with Cardiology (Heart doctor) for continued management It was a pleasure taking care of you. Total Time Total Time Spent Total Time Spent (In Minutes): 45 Total Time Includes: Examination of the Patient, Discharge Planning, Medication Reconciliation and Communication With Other Providers
--- NOTE | 2022-12-04 10:14 | Electrocardiogram Report ---
Test Reason : Blood Pressure : / mmHG Vent. Rate : 090 BPM Atrial Rate : 258 BPM P-R Int : 000 ms QRS Dur : 070 ms QT Int : 322 ms P-R-T Axes : 000 -44 144 degrees QTc Int : 393 ms Poor data quality, interpretation may be adversely affected Atrial fibrillation Left axis deviation Minimal voltage criteria for LVH, may be normal variant Septal infarct , age undetermined Poor R wave progression, consider anterior SC vs. lead placement vs. LVH Nonspecific T wave abnormality Abnormal ECG No previous ECGs available Confirmed by Srini Coker ([id number]) on 12/04/2022 10:14:07 AM Referred By: REFERRED SELF Confirmed By:Srini Coker
--- NOTE | 2022-12-04 10:40 | Electrocardiogram Report ---
Test Reason : Blood Pressure : / mmHG Vent. Rate : 085 BPM Atrial Rate : 093 BPM P-R Int : 000 ms QRS Dur : 068 ms QT Int : 326 ms P-R-T Axes : 000 -34 -44 degrees QTc Int : 387 ms Atrial fibrillation Left axis deviation Low voltage QRS Septal infarct (cited on or before 02-DEC-2022) Poor R wave progression, consider anterior PR vs. lead placement vs. LVH Nonspecific T wave abnormality Abnormal ECG When compared with ECG of 02-DEC-2022 19:57, No significant change Confirmed by Srini Coker ([id number]) on 12/04/2022 10:40:17 AM Referred By: REFERRED SELF Confirmed By:Srini Coker
== END 2022-12-03 14:57 | disposition home or self-care (01) | DRG 310 ==
LOC: ED 18:27 → 1E 23:08

== ENCOUNTER 2025-06-14 12:00 | Inpatient (IN) ==
[2025-06-14] MEDS: OPTIRAY 320 125ml IV ONE (12:06)
--- NOTE | 2025-06-14 12:29 | CT Scan Report ---
CT SCAN OF THE BRAIN WITHOUT IV CONTRAST CLINICAL HISTORY: Neurological deficit. Stroke like symptoms. COMPARISON STUDY: No priors. TECHNIQUE: Unenhanced axial CT scan of the brain is performed from the vertex to the skull base. Imag es are reviewed in the axial, sagittal, coronal planes. A dose lowering technique was utilized adheri ng to the principles of ALARA. FINDINGS: Brain parenchyma: There is age-related involutional change noting mild to moderate subcortical and pe riventricular microangiopathic disease. There is no hemorrhage, mass effect, or evidence of acute ter ritorial ischemia by CT criteria. Moctezuma-white matter differentiation is preserved. No extra-axial flui d collection is seen. Ventricles, sulci, cisterns: Prominent secondary to involutional change. Intracranial vasculature: There is atherosclerotic calcification of the cavernous carotid and vertebr al arteries. Calvarium: Unremarkable. Sinuses and mastoids: The visualized paranasal sinuses are clear. The mastoid air cells are well pneu matized. Orbits: The bony orbits are grossly intact. IMPRESSION: There is no hemorrhage, mass effect, or evidence of acute territorial ischemia by CT esme villa. ACT 112: Negative or not required by law. Electronically signed by: Rojas Garza M.D. 06/14/2025 12:28 PM
--- NOTE | 2025-06-14 12:32 | CT Scan Report ---
CT angio neck with con CLINICAL HISTORY: neuro deficit, acute stroke suspected. TECHNIQUE: Following the IV administration of 120 of Optiray, CT angiogram of the neck was performed from the aortic arch to the skull base. Images are reviewed in the axial, sagittal, and coronal plane s. 3-D MIPS images are created and assessed. IV contrast was administered without complication. All m easurements were calculated based on NASCET criteria. A dose lowering technique was utilized adherin g to the principles of ALARA. CT DOSE: 2292 COMPARISON STUDY: Head CT earlier today FINDINGS: There is motion artifact. There are carotid bulb calcifications and calcification distally at the internal carotid arteries bilaterally. The left vertebral artery is dominant and the right zora tebral artery is very diminutive beyond PICA, and either terminates in PICA or has short segment occl usion distally at the right vertebral artery. No other significant narrowing or occlusion seen at the vertebral arteries or the common or internal carotid arteries bilaterally. IMPRESSION: 1. The right vertebral artery either terminates in PICA or has short segment occlusion distally. 2. No other significant narrowing or occlusion seen at the common or internal carotid arteries. ACT 112: Negative or not required by law. The above report was generated using voice recognition software. It may contain grammatical, syntax o r spelling errors. Electronically signed by: Phani Estrada M.D. 06/14/2025 12:30 PM
[2025-06-14 12:36] LABS: Hematocrit (blood only) 40.7 % (37.0-47.0); Hemoglobin 14.2 g/dl (12.0-16.0); Immature Granulocytes # (auto) 0.04 K/uL (0.01-0.20); Immature Granulocytes % (auto) 0.6 %; Mean Corpuscular Hemoglobin 30.3 pg (25.0-34.0); Mean Corpuscular Volume 87.0 fL (80.0-100.0); Platelet Count 155 K/uL (130-400); RDW Standard Deviation 38.6 fL (36.4-46.3); Red Blood Count 4.68 M/uL (4.20-5.40); White Blood Count 6.94 K/ul (4.8-10.8)
--- NOTE | 2025-06-14 12:47 | CT Scan Report ---
CTA ANGIOGRAPHY OF THE HEAD CLINICAL HISTORY: neuro deficit, acute stroke suspected. Fall. Left-sided weakness. COMPARISON STUDY: No previous studies for comparison. TECHNIQUE: Helical axial images of the head were obtained following uneventful intravenous administr ation of 119 cc of Optiray. Sagittal and coronal reconstructions were viewed as well as maximal inten sity projections on an independent 3-D workstation. Automated exposure control was utilized for the study. A dose lowering technique was utilized adhering to the principles of ALARA. CT DOSE: 2291.96 mGy.cm FINDINGS: Please note that the head CT will be reported separately. No acute intracranial hemorrhage, midline shift or mass effect is present. Ventricular system is unremarkable. There are no extra-axia l collections. Prominence of the extra-axial spaces is due to atrophy. White matter hypodensity sugge sts small vessel disease. There is moderate calcified plaque within the cavernous carotids which resu lts in mild stenosis. There is no intracranial aneurysm. Severe multifocal stenoses within the intrac ranial vessels are noted, including severe stenoses within multiple right-sided sylvian branches as w ell as the bilateral P2 and P3 segments. Short segment occlusion with distal reconstitution of the di stal right vertebral artery is noted. Intracranial portion of the left vertebral artery is patent. Th e basilar artery is patent. Bilateral posterior communicating arteries and an anterior communicating artery are patent. IMPRESSION: 1. Age indeterminate, but probably chronic, short segment occlusion with distal reconstitution of the distal right vertebral artery. 2. Severe multifocal stenoses within the intracranial vessels, as described above. These are most pro nounced within the right MCA sylvian branches and the bilateral P2 and P2 segments. These findings ar e likely due to atherosclerosis although vasospasm could appear similar. 3. No definite acute large vessel occlusion. No intracranial aneurysm. ACT 112: Negative or not required by law. Electronically signed by: Wiliam Milligan M.D. 06/14/2025 12:45 PM
--- NOTE | 2025-06-14 12:48 | CT Scan Report ---
CT cervical spine w con CLINICAL HISTORY: fall COMPARISON STUDY: None FINDINGS: No cervical spine fracture or subluxation seen. There are minimal degenerative changes. IMPRESSION: No cervical spine fracture seen. ACT 112: Negative or not required by law. Electronically signed by: Phani Estrada M.D. 06/14/2025 12:47 PM
--- NOTE | 2025-06-14 12:49 | XRay Report ---
XR chest 1V portable CLINICAL HISTORY: neuro deficit, acute stroke suspected COMPARISON STUDY: 12/02/2022 FINDINGS: Stable mild cardiomegaly without pulmonary vascular congestion. No consolidation or pleural effusion. No pneumothorax. IMPRESSION: No acute findings. ACT 112: Negative or not required by law. Electronically signed by: Phani Estrada M.D. 06/14/2025 12:47 PM
[2025-06-14] MEDS: SODIUM CHLORIDE 0.9% 500 ML IV ONE (12:50)
[2025-06-14 12:56] LABS: Alanine Aminotransferase 17.0 U/L (7-52); Albumin Globulin Ratio 1.4 (0.9-2); Alkaline Phosphatase 85.0 U/L (34-104); Anion Gap 6.0 (3-11); Bilirubin,Total 0.6 mg/dl (0.2-1.0); Blood Urea Nitrogen 15.0 mg/dl (6-23); Calcium 8.5 mg/dl (8.6-10.3); Carbon Dioxide 28.0 mmol/L (21-32); Chloride 102.0 mmol/L (98-107); Creatinine Clr Calc Pharmacy 54.0 ml/min; Globulin 2.7 gm/dl (2.5-4.0); Glucose 154.0 mg/dl (70-99(Fasting)); Magnesium 1.9 mg/dl (1.7-2.4); Potassium 4.4 mmol/L (3.5-5.1); Sodium 136.0 mmol/L (136-145); Total Protein 6.4 gm/dl (6.0-8.3)
--- NOTE | 2025-06-14 12:58 | CT Scan Report ---
CT SCAN OF THE ABDOMEN AND PELVIS WITH IV CONTRAST CLINICAL HISTORY: Fall. Left-sided weakness. COMPARISON STUDY: No priors TECHNIQUE: Following the IV administration of 119 cc of Optiray 320, CT scan of the abdomen and pelv is is performed from the lung bases to the proximal femora. Images are reviewed in the axial, sagitta l, and coronal planes. IV contrast was administered without complication. A dose lowering technique w as utilized adhering to the principles of ALARA. There is streak artifact from the arms which could n ot be elevated above the abdomen. FINDINGS: Lung bases: The heart is normal in size and without pericardial effusion. The lung bases are clear no ting bibasilar scarring/atelectasis. Liver: The contrast-enhanced liver is normal in size and contour. Attenuation is diminished indicatin g steatosis. Fatty sparing is seen adjacent to the gallbladder fossa. There is no intrahepatic biliar y ductal dilatation. The hepatic veins and portal veins are patent. Gallbladder: Unremarkable. Spleen: Normal in size and attenuation. There are calcified splenic granulomas. Pancreas: Unremarkable. Adrenal glands: Unremarkable. Kidneys: The contrast enhanced kidneys are normal in size and without hydronephrosis. The kidneys enh ance symmetrically. Scattered subcentimeter cortical hypodensities likely represent cysts but are too small for definitive characterization. Abdominal vasculature: The abdominal aorta is normal in course and caliber noting advanced atheroscle rotic calcification. Bowel: There is mild sigmoid diverticulosis without CT evidence of acute diverticulitis. No bowel obs truction is seen. The appendix is not visualized. Peritoneum: There is no intraperitoneal free air or abdominal ascites. There is a large fat-containin g hernia in the anterior right upper pelvis seen on axial image #235. Lymphadenopathy: None. Pelvic viscera: The bladder, uterus, and adnexa are normal as visualized. Skeletal structures: The skeletal structures are osteopenic. Minimal degenerative change is seen in t he spine. Sclerotic change is noted in the sacroiliac joints and pubic symphysis. No lytic or blastic lesions are seen. IMPRESSION: 1. There is no evidence of solid organ injury in the abdomen or pelvis. 2. No acute infectious or inflammatory findings are identified in the abdomen or pelvis. 3. Hepatic steatosis. 4. Additional findings as above. ACT 112: Negative or not required by law. Electronically signed by: Rojas Garza M.D. 06/14/2025 12:56 PM
[2025-06-14] MEDS: CLOPIDOGREL BISULFATE 300 MG TAB PO STA (13:20)
[2025-06-14] MEDS: ASPIRIN 81 MG CHEW PO STA (13:20)
[2025-06-14 13:27] LABS: INR 1.1 (0.9-1.1); Partial Thromboplastin Time 24 Seconds (21-31); Prothrombin Time 12.0 Seconds (9.0-12.0)
[2025-06-14] MEDS ORDERED: PHARMACIST DISCHARGE MED REC CONSULT PRN (17:13)
--- NOTE | 2025-06-14 18:26 | History & Physical Report ---
Date of Service June 14, 2025 Assessment & Plan (1) Stroke-like symptoms: (2) Fall: (3) Atrial fibrillation with controlled ventricular rate: (4) Dementia: (5) Hyperlipidemia: Plan 79 year old female with PMH significant for A fib, hypertension, hyperlipidemia, osteoporosis, and dementia who presented to the ED on 06/14/2025 for unsteady gait and a fall at 0930 and is admitted for stroke work up. Stroke like symptoms Initial presentation with NIH of 13 for left sided deficits that improved (NIH reassessed to be 8) Head CTA revealed severe multifocal stenoses within intracranial vessels likely due to atherosclerosis or vasospasm; no definite large vessel occlusion Neck CTA revealed short segment occlusion of right vertebral artery; no other significant narrowing or occlusion Telestroke advised ASA 324mg and Plavix 300mg Upon my assessment, patient had significant left sided deficits again; NIH 18 Stroke alert called again Telestroke advised MRI and MRA of head/neck - patient could not tolerate MRI Admit to PCU Consult neurology Neuro checks q1hr Obtain echocardiogram - previous in Nov 2022 with EF 60-65%, mild aortic valve sclerosis, mild MR, mild TR A1C and lipid panel in am PT/OT/ST consults Fall Fall at 0930 with no head strike or LOC No reported injuries or pain Head CT, cervical spine CT, CTAP with no acute findings A fib Continue Eliquis Hold metoprolol for permissive hypertension Hyperlipidemia Continue statin Dementia Home Aricept and Seroquel on hold given altered status Continue citalopram DVT Prophylaxis: on Eliquis Code Status: FULL CODE - As per discussion at bedside with the patient. PCP: Cora Avendano Disposition: admit to PCU Patient seen in collaboration with Dr Waters. Please see addendum. I spent a total of 70 minutes coordinating, documenting and providing care for this patient excluding time spent in the performance of separately billed services or time spent by another provider/QHP. Admission and Anticipated Discharge Date Admission Date: June 14, 2025 History of Present Illness Chief Complaint: Fall Primary Care Provider: Cora Avendano 79 year old female with PMH significant for A fib, hypertension, hyperlipidemia, osteoporosis, and dementia who presented to the ED on 06/14/2025 for unsteady gait and a fall at 0930. History obtained from patient's as patient has memory deficits. Patient's reports that overnight he noticed her gait was unsteady. Then this morning, patient was saying she had pain all over and was unsteady walking again and suffered a fall in the bathroom around 0930. She did not hit her head or lose consciousness. Her feels as though her left leg gave out. Reports that she was not able to move her left arm. He reports this is her first fall. He denies any facial droop or speech disturbances. Patient denies visual disturbances, recent illness, fever, chills, cough, cold symptoms, chest pain, SOB, abdominal pain, N/V/D. Allergies Allergy/AdvReac Type Severity Reaction Status Date / Time No Known Allergies Allergy Verified 12/02/22 22:26 Home Medications Medication Instructions Recorded Confirmed Type multivitamin 1 tab PO DAILY 12/02/22 06/14/25 History apixaban 5 mg tablet (Eliquis) 5 mg PO BID #90 tabs 12/03/22 06/14/25 Rx metoprolol succinate 25 mg 12.5 mg (1/2 x 25 mg) PO DAILY #30 12/03/22 06/14/25 Rx tablet,extended release 24 hr tabs atorvastatin 10 mg tablet 10 mg PO DAILY 06/14/25 06/14/25 History citalopram 20 mg tablet 20 mg PO DAILY 06/14/25 06/14/25 History donepezil 5 mg tablet 5 mg PO DAILY 06/14/25 06/14/25 History quetiapine 25 mg tablet 25 mg PO DAILY 06/14/25 06/14/25 History Past Med/Surg History Problem List (Updated 06/14/25 @ 18:01 by RILEY Can) Dementia Atrial fibrillation with controlled ventricular rate Hyperlipidemia Stroke-like symptoms Fall Medical History (Updated 06/14/25 @ 18:01 by RILEY Can) Anxiety Osteoporosis Hypertension Dyslipidemia New onset a-fib Dizziness No pertinent past medical history Surgical History (Updated 06/14/25 @ 18:08 by RILEY Can) History of esophagogastroduodenoscopy (EGD) History of appendectomy History of colonoscopy No pertinent past surgical history Social History Smoking Status: Never smoker Second Hand Exposure: No; Do You Dip or Chew Tobacco: No; Hx Alcohol Use: No Hx Substance Use: No Preferred Language: [place]er Communication Ability: Effective Communication Ability Comment: Dementia 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 Beliefs That Will Affect Care: None Current Living Situation: Spouse Other Information That Helps Us Care for You: No Feels Safe at Home: Yes Safety Concerns: Feels Safe At This Time Assistive Devices: Glasses Review of Systems Review of Systems: All systems reviewed & are unremarkable except as noted in HPI & below Physical Exam Physical Exam: General/Psych: WD/WN, sitting up in bed, NAD, conversing easily Head: normocephalic, atraumatic Eyes: normal inspection, PERRL, conjunctivae pink ENT: external ear and nose normal, oropharynx normal Neck: normal visual inspection, trachea midline Respiratory: normal respiratory effort, lungs clear to auscultation, no wheeze/rales/rhonchi, no accessory muscle use Cardiovascular: regular rate and rhythm, no murmur/rub/gallop, no JVD Extremities: no cyanosis or clubbing, normal peripheral pulses, no BLE edema Abdomen/GI: normal bowel sounds, soft, nontender Neurologic/MSK: A+Ox1, significant left sided deficits with no sensation appreciated to left face, arm, leg; slight facial droop; left hemianopia; left arm drift/drop; decreased left head of english strength Skin: no rashes, normal color, warm and dry Results & Data Results & Data Vital Signs (Past 12 Hours) Vital Signs Temp Pulse Pulse Resp BP BP Pulse Ox 06/14/25 17:40 06/14/25 17:13 06/14/25 16:41 06/14/25 16:32 84 20 162/81 H 95 06/14/25 16:12 102 H 20 95 06/14/25 15:30 71 18 150/90 H 95 06/14/25 15:10 96 06/14/25 15:00 78 18 154/74 H 97 06/14/25 14:30 87 18 155/108 H 94 06/14/25 12:59 71 23 122/69 98 06/14/25 12:29 81 20 136/79 96 06/14/25 12:28 85 06/14/25 11:59 36.7 C 81 16 157/116 H 96 O2 Del Method 06/14/25 17:40 Room Air 06/14/25 17:13 Room Air 06/14/25 16:41 Room Air 06/14/25 16:32 Room Air 06/14/25 16:12 Room Air 06/14/25 15:30 Room Air 06/14/25 15:10 Room Air 06/14/25 15:00 Room Air 06/14/25 14:30 Room Air 06/14/25 12:59 Room Air 06/14/25 12:29 Room Air 06/14/25 12:28 06/14/25 11:59 Room Air Laboratory Results Short CBC 06/14/25 Range/Units 12:17 WBC 6.94 (4.8-10.8) K/ul Hgb 14.2 (12.0-16.0) g/dl Hct 40.7 (37.0-47.0) % Plt Count 155 (130-400) K/uL BMP 06/14/25 12:17 Sodium 136 Potassium 4.4 Chloride 102 Carbon Dioxide 28 BUN 15 Creatinine 0.81 Glucose 154 H Calcium 8.5 L Liver Function 06/14/25 Range/Units 12:17 Total Bilirubin 0.6 (0.2-1.0) mg/dl AST 23 (13-39) U/L ALT 17 (7-52) U/L Alkaline Phosphatase 85 (34-104) U/L Albumin 3.7 (3.4-5.0) gm/dl I have independently reviewed and interpreted patient's admitting labs including CBC, CMP, PTT, PT/INR, mag and troponin. Diagnostic Findings Chest X-Ray 06/14/25 11:59 XR chest 1V portable CLINICAL HISTORY: neuro deficit, acute stroke suspected COMPARISON STUDY: 12/02/2022 FINDINGS: Stable mild cardiomegaly without pulmonary vascular congestion. No consolidation or pleural effusion. No pneumothorax. IMPRESSION: No acute findings. ACT 112: Negative or not required by law. Electronically signed by: Phani Estrada M.D. 06/14/2025 12:[address] 06/14/25 11:59 CT SCAN OF THE BRAIN WITHOUT IV CONTRAST CLINICAL HISTORY: Neurological deficit. Stroke like symptoms. COMPARISON STUDY: No priors. TECHNIQUE: Unenhanced axial CT scan of the brain is performed from the vertex to the skull base. Images are reviewed in the axial, sagittal, coronal planes. A dose lowering technique was utilized adhering to the principles of ALARA. FINDINGS: Brain parenchyma: There is age-related involutional change noting mild to moderate subcortical and periventricular microangiopathic disease. There is no hemorrhage, mass effect, or evidence of acute territorial ischemia by CT criteria. [place]ct[place]uma-white matter differentiation is preserved. No extra-axial fluid collection is seen. Ventricles, sulci, cisterns: Prominent secondary to involutional change. Intracranial vasculature: There is atherosclerotic calcification of the cavernous carotid and vertebral arteries. Calvarium: Unremarkable. Sinuses and mastoids: The visualized paranasal sinuses are clear. The mastoid air cells are well pneumatized. Orbits: The bony orbits are grossly intact. IMPRESSION: There is no hemorrhage, mass effect, or evidence of acute territorial ischemia by CT criteria. ACT 112: Negative or not required by law. Electronically signed by: Rojas Garza M.D. 06/14/2025 12:28 PM Head CTA 06/14/25 11:59 CTA ANGIOGRAPHY OF THE HEAD CLINICAL HISTORY: neuro deficit, acute stroke suspected. Fall. Left-sided weakness. COMPARISON STUDY: No previous studies for comparison. TECHNIQUE: Helical axial images of the head were obtained following uneventful intravenous administration of 119 cc of Optiray. Sagittal and coronal reconstructions were viewed as well as maximal intensity projections on an independent 3-D workstation. Automated exposure control was utilized for the study. A dose lowering technique was utilized adhering to the principles of ALARA. CT DOSE: 2291.96 mGy.cm FINDINGS: Please note that the head CT will be reported separately. No acute intracranial hemorrhage, midline shift or mass effect is present. Ventricular system is unremarkable. There are no extra-axial collections. Prominence of the extra-axial spaces is due to atrophy. White matter hypodensity suggests small vessel disease. There is moderate calcified plaque within the cavernous carotids which results in mild stenosis. There is no intracranial aneurysm. Severe multifocal stenoses within the intracranial vessels are noted, including severe stenoses within multiple right-sided sylvian branches as well as the bilateral P2 and P3 segments. Short segment occlusion with distal reconstitution of the di stal right vertebral artery is noted. Intracranial portion of the left vertebral artery is patent. The basilar artery is patent. Bilateral posterior communicating arteries and an anterior communicating artery are patent. IMPRESSION: 1. Age indeterminate, but probably chronic, short segment occlusion with distal reconstitution of the distal right vertebral artery. 2. Severe multifocal stenoses within the intracranial vessels, as described above. These are most pronounced within the right MCA sylvian branches and the bilateral P2 and P2 segments. These findings are likely due to atherosclerosis although vasospasm could appear similar. 3. No definite acute large vessel occlusion. No intracranial aneurysm. ACT 112: Negative or not required by law. Electronically signed by: Wiliam Milligan M.D. 06/14/2025 12:45 PM Neck CTA 06/14/25 11:59 CT angio neck with con CLINICAL HISTORY: neuro deficit, acute stroke suspected. TECHNIQUE: Following the IV administration of 120 of Optiray, CT angiogram of the neck was performed from the aortic arch to the skull base. Images are reviewed in the axial, sagittal, and coronal planes. 3-D MIPS images are created and assessed. IV contrast was administered without complication. All measurements were calculated based on NASCET criteria. A dose lowering technique was utilized adhering to the principles of ALARA. CT DOSE: 2292 COMPARISON STUDY: Head CT earlier today FINDINGS: There is motion artifact. There are carotid bulb calcifications and calcification distally at the internal carotid arteries bilaterally. The left vertebral artery is dominant and the right vertebral artery is very diminutive beyond PICA, and either terminates in PICA or has short segment occlusion distally at the right vertebral artery. No other significant narrowing or occlusion seen at the vertebral arteries or the common or internal carotid arteries bilaterally. IMPRESSION: 1. The right vertebral artery either terminates in PICA or has short segment occlusion distally. 2. No other significant narrowing or occlusion seen at the common or internal carotid arteries. ACT 112: Negative or not required by law. The above report was generated using voice recognition software. It may contain grammatical, syntax or spelling errors. Electronically signed by: Phani Estrada M.D. 06/14/2025 12:30 PM Abdomen/Pelvis CT 06/14/25 12:05 CT SCAN OF THE ABDOMEN AND PELVIS WITH IV CONTRAST CLINICAL HISTORY: Fall. Left-sided weakness. COMPARISON STUDY: No priors TECHNIQUE: Following the IV administration of 119 cc of Optiray 320, CT scan of the abdomen and pelvis is performed from the lung bases to the proximal femora. Images are reviewed in the axial, sagittal, and coronal planes. IV contrast was administered without complication. A dose lowering technique was utilized adhering to the principles of ALARA. There is streak artifact from the arms which could not be elevated above the abdomen. FINDINGS: Lung bases: The heart is normal in size and without pericardial effusion. The lung bases are clear noting bibasilar scarring/atelectasis. Liver: The contrast-enhanced liver is normal in size and contour. Attenuation is diminished indicating steatosis. Fatty sparing is seen adjacent to the gallbladder fossa. There is no intrahepatic biliary ductal dilatation. The hepatic veins and portal veins are patent. Gallbladder: Unremarkable. Spleen: Normal in size and attenuation. There are calcified splenic granulomas. Pancreas: Unremarkable. Adrenal glands: Unremarkable. Kidneys: The contrast enhanced kidneys are normal in size and without hydronephrosis. The kidneys enhance symmetrically. Scattered subcentimeter cortical hypodensities likely represent cysts but are too small for definitive characterization. Abdominal vasculature: The abdominal aorta is normal in course and caliber noting advanced atherosclerotic calcification. Bowel: There is mild sigmoid diverticulosis without CT evidence of acute diverticulitis. No bowel obstruction is seen. The appendix is not visualized. Peritoneum: There is no intraperitoneal free air or abdominal ascites. There is a large fat-containing hernia in the anterior right upper pelvis seen on axial image #235. Lymphadenopathy: None. Pelvic viscera: The bladder, uterus, and adnexa are normal as visualized. Skeletal structures: The skeletal structures are osteopenic. Minimal degenerative change is seen in the spine. Sclerotic change is noted in the sacroiliac joints and pubic symphysis. No lytic or blastic lesions are seen. IMPRESSION: 1. There is no evidence of solid organ injury in the abdomen or pelvis. 2. No acute infectious or inflammatory findings are identified in the abdomen or pelvis. 3. Hepatic steatosis. 4. Additional findings as above. ACT 112: Negative or not required by law. Electronically signed by: Rojas Garaz M.D. 06/14/2025 12:[address] 06/14/25 12:05 CT cervical spine w con CLINICAL HISTORY: fall COMPARISON STUDY: None FINDINGS: No cervical spine fracture or subluxation seen. There are minimal degenerative changes. IMPRESSION: No cervical spine fracture seen. ACT 112: Negative or not required by law. Electronically signed by: Phani Estrada M.D. 06/14/2025 12:47 PM ECG Additional Comments: I have independently reviewed and interpreted patient's admitting EKG which rev ealed: atrial fibrillation at a rate of 81 bpm Code Status & VTE Plan Code Status Full Code VTE Prophylaxis Plan VTE Prophylaxis will be ordered: Yes Supervising Physician Co-Signing Physician Notes Patient seen and examined at bedside. At time of evaluation, patient had NIHSS of 18. This provider and DANITA called code stroke again, teleneuro recommended MRA head and neck which were ordered STAT. Patient unable to tolerate MRI's, will need anesthesia, had to be aborted. On exam, NIHSS of 18, see nursing documentation for specifics. Hemineglect of left side, aphasia, left sided weakness/ataxia noted. Patient with likely cerebral artery vasospasm, given symptoms likely right MCA vs. right anterior infarct/vasospasm. Per teleneurology, asprin, plavix, statin given, MR had to be aborted due to inability to tolerate. Patient will need MRI under anesthesia, neurology consult in person in AM, held seroquel and donepezil given acute change in status. Permissive HTN, STAT CT head with any change in neuro status. I have seen and discussed the case with the collaborating advanced practitioner. I agree with the above H&P. I have reviewed and confirmed the patients medical history, the findings on physical examination, and the patients diagnosis and treatment plan with Tracey LIN and agree with the information documented. I spent a total of 50 minutes coordinating, documenting, and providing care for this patient excluding time spent in the performance of separately billed services. All of the aforementioned completed outside of collaborating with the assigned advanced practitioner for a full treatment plan. I have reviewed the advanced practitioner's documentation, and I agree with, and take responsibility for the plan of care
[2025-06-14] MEDS: CALCIUM GLUCONATE 1,000 MG/60 ML BAG IV STA (18:27)
[2025-06-14] MEDS: LACTATED RINGER'S 1,000 ML IV SCH (18:27)
[2025-06-14] MEDS: APIXABAN 5 MG TABLET PO SCH (19:30)
--- NOTE | 2025-06-14 19:53 | Emergency Department Note ---
History of Present Illness General Chief complaint: Stroke Alert Stated complaint: STROKE ALERT Time Seen by Provider: 06/14/25 12:04 Source: family ( at bedside) History of Present Illness Provider complaint: Strokelike symptoms 79-year-old female with history of atrial fibrillation on Eliquis presents emergency department for strokelike symptoms. According to the who is providing the history, the patient felt very unsteady on her feet last night. He states that this morning she fell and then he noticed her having left upper extremity weakness. Home Medications Medication Instructions Recorded Confirmed Type multivitamin 1 tab PO DAILY 12/02/22 06/14/25 History apixaban 5 mg tablet (Eliquis) 5 mg PO BID #90 tabs 12/03/22 06/14/25 Rx metoprolol succinate 25 mg 12.5 mg (1/2 x 25 mg) PO DAILY #30 12/03/22 06/14/25 Rx tablet,extended release 24 hr tabs atorvastatin 10 mg tablet 10 mg PO DAILY 06/14/25 06/14/25 History citalopram 20 mg tablet 20 mg PO DAILY 06/14/25 06/14/25 History donepezil 5 mg tablet 5 mg PO DAILY 06/14/25 06/14/25 History quetiapine 25 mg tablet 25 mg PO DAILY 06/14/25 06/14/25 History Allergies Allergy/AdvReac Type Severity Reaction Status Date / Time No Known Allergies Allergy Verified 12/02/22 22:26 Past Med/Surg History Problem List (Updated 06/14/25 @ 19:53 by Esa Marquis MD) Brain TIA (Acute) Dementia Atrial fibrillation with controlled ventricular rate Hyperlipidemia Stroke-like symptoms Fall Medical History Anxiety Osteoporosis Hypertension Dyslipidemia New onset a-fib Dizziness No pertinent past medical history Surgical History History of esophagogastroduodenoscopy (EGD) History of appendectomy History of colonoscopy No pertinent past surgical history Social History Smoking Status: Never smoker Second Hand Exposure: No; Do You Dip or Chew Tobacco: No; Hx Alcohol Use: No Hx Substance Use: No Preferred Language: Chinese Communication Ability: Effective Communication Ability Comment: Dementia Director Of Field Coordination Required: No Beliefs That Will Affect Care: None Current Living Situation: Spouse Other Information That Helps Us Care for You: No Feels Safe at Home: Yes Safety Concerns: Feels Safe At This Time Assistive Devices: Glasses Physical Exam Vital Signs Vital Signs - 24 hr 06/14/25 11:59 06/14/25 12:28 06/14/25 12:29 Temperature 36.7 C Temperature Source Oral Pulse Rate 81 85 Pulse Rate [Apical] 81 Respiratory Rate 16 20 Respiratory Effort / Characteristics Non-Labored Spontaneous Non-Labored Spontaneous Respiratory Depth Normal Normal Respiratory Pattern Regular Regular Blood Pressure 157/116 H Blood Pressure [Right Arm] 136/79 Blood Pressure Mean 129 Blood Pressure Mean [Right Arm] 98 Pulse Oximetry 96 96 Oxygen Delivery Method Room Air Room Air Sepsis Recent Fever Within 48 Hours No Sepsis New/Unexplained Change in Mental Status No Sepsis Action Taken by Nursing No Action Required 06/14/25 12:59 Temperature Temperature Source Pulse Rate Pulse Rate [Apical] 71 Respiratory Rate 23 Respiratory Effort / Characteristics Non-Labored Spontaneous Respiratory Depth Normal Respiratory Pattern Regular Blood Pressure Blood Pressure [Right Arm] 122/69 Blood Pressure Mean Blood Pressure Mean [Right Arm] 86 Pulse Oximetry 98 Oxygen Delivery Method Room Air Sepsis Recent Fever Within 48 Hours Sepsis New/Unexplained Change in Mental Status Sepsis Action Taken by Nursing Physical Exam HENT: Exam performed. -Head: Normocephalic and atraumatic. EYES: Conjunctivae and EOM are normal. Pupils are equal, round, and reactive to light. Right eye exhibits no discharge. Left eye exhibits no discharge. No scleral icterus. NECK: Normal range of motion. Neck supple. No JVD present. No spinous process tenderness present. CV: Normal rate, irregular rhythm, normal heart sounds and intact distal pulses. There is no peripheral edema. Palpable radial pulses bue. PULM/CHEST: Effort normal and breath sounds normal. No respiratory distress. No stridor. She has no wheezes. She has no rales. -Chest Wall: She exhibits no tenderness. No crepitus bilaterally. ABD: The abdomen is soft. There is no tenderness. There is no rebound, no guarding. MUSC/SKEL: Pelvis stable. NEURO: NIHSS: 7 (1b:2, 5a:3, 7:1, 11:1) Course Course 1204: The patient was evaluated in room B1. A complete history and physical exam was performed Cardiac monitoring: An order was placed for continuous cardiac monitoring. The monitor shows a rate of 80 with atrial fibrilation rhythm interpreted by me No code stroke called as the patient is on Eliquis and the exact last well normal cannot be established by the . Patient is not a TNKase candidate 1245: On reassessment patient is able to move her left upper extremity and is now able to resist gravity. This is markedly improved from her previous exam. 1309: Vital signs stable. Patient continues to be able to move her left upper extremity markedly improved from her initial presentation. Imaging on the CT of the head shows an age-indeterminate probably chronic short segment occlusion with distal reconstitution of the distal right vertebral artery. Severe multifocal stenoses of the intracranial vessels most pronounced in the MCA sylvian branches in the bilateral P2 and P3 segments. Discussed these findings with Dr. Rodriguez on-call [facility] and he agrees patient is not a TNKase candidate and agrees that the patient is not a candidate for endovascular intervention. Dr. Rodriguez states he will evaluate the patient recommends aspirin and Plavix at this time. Patient will be admitted to the hospitalist team for TIA. 1432: While the patient was being evaluated for admission by the admitting team the patient started having extinction to the left side and left upper extremity weakness similar to when she first arrived. Again patient is not a candidate for TNKase as she is on Eliquis. Administered Medications Apixaban (Apixaban 5 Mg Tablet) 5 mg PO BID [facility] Stop: 07/14/25 20:59 Last Admin: 06/14/25 19:30 Dose: 5 mg Documented By: RUBIO Lactated Ringer's (Lr) 1,000 mls @ 80 mls/hr IV .[id number] YULIA Stop: 06/15/25 00:00 Last Admin: 06/14/25 18:27 Dose: 80 mls/hr Documented By: LANI Discontinued Medications Aspirin (Aspirin 81 Mg Chew) 324 mg PO NOW STA Stop: 06/14/25 13:17 Last Admin: 06/14/25 13:20 Dose: 324 mg Documented By: ANA Clopidogrel Bisulfate (Clopidogrel Bisulfate 300 Mg Tab) 300 mg PO NOW STA Stop: 06/14/25 13:17 Last Admin: 06/14/25 13:20 Dose: 300 mg Documented By: ANA Sodium Chloride (Nss) 500 mls @ 999 mls/hr IV .Q31M ONE Stop: 06/14/25 12:29 Last Infusion: 06/14/25 13:24 Dose: Infused Documented By: Admin: 06/14/25 12:50 Dose: 999 mls/hr Documented By: ANA Calcium Gluconate () 1,000 mg in 60 mls @ 240 mls/hr IV NOW STA Stop: 06/14/25 17:57 Last Infusion: 06/14/25 18:41 Dose: Infused Documented By: Admin: 06/14/25 18:27 Dose: 240 mls/hr Documented By: LANI Ioversol (Optiray 320 125ml) 119 ml IV ONCE ONE Stop: 06/14/25 12:06 Last Admin: 06/14/25 12:06 Dose: 119 ml Documented By: SURESH Medical Decision Making Laboratory Data Attestation: I reviewed the patient's lab results. 06/14/25 12:17 06/14/25 12:17 Lab Results 06/14/25 06/14/25 06/14/25 Range/Units 12:17 12:19 12:28 WBC 6.94 (4.8-10.8) K/ul RBC 4.68 (4.20-5.40) M/uL Hgb 14.2 (12.0-16.0) g/dl POC Hgb 14.3 (12.0-16.0) g/dl Hct 40.7 (37.0-47.0) % POC Hct 42 (37-47) % MCV 87.0 (80.0-100.0) fL MCH 30.3 (25.0-34.0) pg MCHC 34.9 (32.0-36.0) g/dL RDW Std Deviation 38.6 (36.4-46.3) fL RDW Coeff of Isabela 12.1 (11.5-14.5) % Plt Count 155 (130-400) K/uL MPV 10.2 (9.4-12.4) fL Immature Gran % (Auto) 0.6 % Neut % (Auto) 79.2 % Lymph % (Auto) 12.7 % [place] % (Auto) 6.5 % Eos % (Auto) 0.6 % Baso % (Auto) 0.4 % Neut # (Auto) 5.50 (1.40-6.50) K/uL Lymph # (Auto) 0.88 L (1.20-3.40) K/uL [place] # (Auto) 0.45 (0.11-0.59) K/uL Eos # (Auto) 0.04 (0.00-0.50) K/uL Baso # (Auto) 0.03 (0.00-0.20) K/uL Immature Gran # (Auto) 0.04 (0.01-0.20) K/uL PT Cancelled INR Cancelled APTT Cancelled PTT Ratio Cancelled POC Sodium 137 (135-144) mmol/L Sodium 136 (136-145) mmol/L POC Potassium 4.5 (3.3-5.0) mmol/L Potassium 4.4 (3.5-5.1) mmol/L POC Chloride 101 (101-112) mmol/L Chloride 102 (98-107) mmol/L Carbon Dioxide 28 (21-32) mmol/L POC Total CO2 27 (24-31) mmol/L Anion Gap 6 (3-11) POC Anion Gap 15.0 L (16-25) mmol/L POC BUN 16 (7-18) mg/dl BUN 15 (6-23) mg/dl Creatinine 0.81 (0.6-1.2) mg/dl POC Creatinine 0.8 (0.6-1.3) mg/dl Est Cr Clr Drug Dosing 54.0 ml/min eGFR 72.88 BUN/Creatinine Ratio 18.5 (10-20) Glucose 154 H (70-99(Fasting)) mg/dl POC Glucose 152 H (70-99) mg/dl POC Glucose (other) 146 H (70-99) mg/dl Calcium 8.5 L (8.6-10.3) mg/dl POC Ioniz Calcium Erasto 1.10 L (1.12-1.32) mmol/l Magnesium 1.9 (1.7-2.4) mg/dl Total Bilirubin 0.6 (0.2-1.0) mg/dl AST 23 (13-39) U/L ALT 17 (7-52) U/L Alkaline Phosphatase 85 (34-104) U/L Troponin I High Sens 5.3 (0-14) pg/ml Total Protein 6.4 (6.0-8.3) gm/dl Albumin 3.7 (3.4-5.0) gm/dl Globulin 2.7 (2.5-4.0) gm/dl Albumin/Globulin Ratio 1.4 (0.9-2) 06/14/ Range/Units 12:38 WBC (4.8-10.8) K/ul RBC (4.20-5.40) M/uL Hgb (12.0-16.0) g/dl POC Hgb (12.0-16.0) g/dl Hct (37.0-47.0) % POC Hct (37-47) % MCV (80.0-100.0) fL MCH (25.0-34.0) pg MCHC (32.0-36.0) g/dL RDW Std Deviation (36.4-46.3) fL RDW Coeff of Isabela (11.5-14.5) % Plt Count (130-400) K/uL MPV (9.4-12.4) fL Immature Gran % (Auto) % Neut % (Auto) % Lymph % (Auto) % [place] % (Auto) % Eos % (Auto) % Baso % (Auto) % Neut # (Auto) (1.40-6.50) K/uL Lymph # (Auto) (1.20-3.40) K/uL [place] # (Auto) (0.11-0.59) K/uL Eos # (Auto) (0.00-0.50) K/uL Baso # (Auto) (0.00-0.20) K/uL Immature Gran # (Auto) (0.01-0.20) K/uL PT 12.0 INR 1.1 APTT 24 PTT Ratio 0.9 POC Sodium (135-144) mmol/L Sodium (136-145) mmol/L POC Potassium (3.3-5.0) mmol/L Potassium (3.5-5.1) mmol/L POC Chloride (101-112) mmol/L Chloride (98-107) mmol/L Carbon Dioxide (21-32) mmol/L POC Total CO2 (24-31) mmol/L Anion Gap (3-11) POC Anion Gap (16-25) mmol/L POC BUN (7-18) mg/dl BUN (6-23) mg/dl Creatinine (0.6-1.2) mg/dl POC Creatinine (0.6-1.3) mg/dl Est Cr Clr Drug Dosing ml/min eGFR BUN/Creatinine Ratio (10-20) Glucose (70-99(Fasting)) mg/dl POC Glucose (70-99) mg/dl POC Glucose (other) (70-99) mg/dl Calcium (8.6-10.3) mg/dl POC Ioniz Calcium Erasto (1.12-1.32) mmol/l Magnesium (1.7-2.4) mg/dl Total Bilirubin (0.2-1.0) mg/dl AST (13-39) U/L ALT (7-52) U/L Alkaline Phosphatase (34-104) U/L Troponin I High Sens (0-14) pg/ml Total Protein (6.0-8.3) gm/dl Albumin (3.4-5.0) gm/dl Globulin (2.5-4.0) gm/dl Albumin/Globulin Ratio (0.9-2) Imaging Data Attestation: I personally reviewed and interpreted this imaging study as follows: My Impression: CT head: No [facility] Radiologist's Impression: Chest X-Ray 06/14/25 11:59 XR chest 1V portable CLINICAL HISTORY: neuro deficit, acute stroke suspected COMPARISON STUDY: 12/02/2022 FINDINGS: Stable mild cardiomegaly without pulmonary vascular congestion. No consolidation or pleural effusion. No pneumothorax. IMPRESSION: No acute findings. ACT 112: Negative or not required by law. Electronically signed by: Phani Estrada M.D. 06/14/2025 12:[address] 06/14/25 11:59 CT SCAN OF THE BRAIN WITHOUT IV CONTRAST CLINICAL HISTORY: Neurological deficit. Stroke like symptoms. COMPARISON STUDY: No priors. TECHNIQUE: Unenhanced axial CT scan of the brain is performed from the vertex to the skull base. Images are reviewed in the axial, sagittal, coronal planes. A dose lowering technique was utilized adhering to the principles of ALARA. FINDINGS: Brain parenchyma: There is age-related involutional change noting mild to moderate subcortical and periventricular microangiopathic disease. There is no hemorrhage, mass effect, or evidence of acute territorial ischemia by CT criteria. [place]-white matter differentiation is preserved. No extra-axial fluid collection is seen. Ventricles, sulci, cisterns: Prominent secondary to involutional change. Intracranial vasculature: There is atherosclerotic calcification of the cavernous carotid and vertebral arteries. Calvarium: Unremarkable. Sinuses and mastoids: The visualized paranasal sinuses are clear. The mastoid air cells are well pneumatized. Orbits: The bony orbits are grossly intact. IMPRESSION: There is no hemorrhage, mass effect, or evidence of acute territorial ischemia by CT criteria. ACT 112: Negative or not required by law. Electronically signed by: Rojas Garza M.D. 06/14/2025 12:28 PM Head CTA 06/14/25 11:59 CTA ANGIOGRAPHY OF THE HEAD CLINICAL HISTORY: neuro deficit, acute stroke suspected. Fall. Left-sided weakness. COMPARISON STUDY: No previous studies for comparison. TECHNIQUE: Helical axial images of the head were obtained following uneventful intravenous administration of 119 cc of Optiray. Sagittal and coronal reconstructions were viewed as well as maximal intensity projections on an independent 3-D workstation. Automated exposure control was utilized for the study. A dose lowering technique was utilized adhering to the principles of ALARA. CT DOSE: 2291.96 mGy.cm FINDINGS: Please note that the head CT will be reported separately. No acute intracranial hemorrhage, midline shift or mass effect is present. Ventricular system is unremarkable. There are no extra-axial collections. Prominence of the extra-axial spaces is due to atrophy. White matter hypodensity suggests small vessel disease. There is moderate calcified plaque within the cavernous carotids which results in mild stenosis. There is no intracranial aneurysm. Severe multifocal stenoses within the intracranial vessels are noted, including severe stenoses within multiple right-sided sylvian branches as well as the bilateral P2 and P3 segments. Short segment occlusion with distal reconstitution of the distal right vertebral artery is noted. Intracranial portion of the left vertebral artery is patent. The basilar artery is patent. Bilateral posterior communicating arteries and an anterior communicating artery are patent. IMPRESSION: 1. Age indeterminate, but probably chronic, short segment occlusion with distal reconstitution of the distal right vertebral artery. 2. Severe multifocal stenoses within the intracranial vessels, as described above. These are most pronounced within the right MCA sylvian branches and the bilateral P2 and P2 segments. These findings are likely due to atherosclerosis although vasospasm could appear similar. 3. No definite acute large vessel occlusion. No intracranial aneurysm. ACT 112: Negative or not required by law. Electronically signed by: Wiliam Milligan M.D. 06/14/2025 12:45 PM Neck CTA 06/14/25 11:59 CT angio neck with con CLINICAL HISTORY: neuro deficit, acute stroke suspected. TECHNIQUE: Following the IV administration of 120 of Optiray, CT angiogram of the neck was performed from the aortic arch to the skull base. Images are reviewed in the axial, sagittal, and coronal planes. 3-D MIPS images are created and assessed. IV contrast was administered without complication. All measurements were calculated based on NASCET criteria. A dose lowering technique was utilized adhering to the principles of ALARA. CT DOSE: 2292 COMPARISON STUDY: Head CT earlier today FINDINGS: There is motion artifact. There are carotid bulb calcifications and calcification distally at the internal carotid arteries bilaterally. The left vertebral artery is dominant and the right vertebral artery is very diminutive beyond PICA, and either terminates in PICA or has short segment occlusion distally at the right vertebral artery. No other significant narrowing or occlusion seen at the vertebral arteries or the common or internal carotid arteries bilaterally. IMPRESSION: 1. The right vertebral artery either terminates in PICA or has short segment occlusion distally. 2. No other significant narrowing or occlusion seen at the common or internal carotid arteries. ACT 112: Negative or not required by law. The above report was generated using voice recognition software. It may contain grammatical, syntax or spelling errors. Electronically signed by: Phani Estrada M.D. 06/14/2025 12:30 PM Abdomen/Pelvis CT 06/14/25 12:05 CT SCAN OF THE ABDOMEN AND PELVIS WITH IV CONTRAST CLINICAL HISTORY: Fall. Left-sided weakness. COMPARISON STUDY: No priors TECHNIQUE: Following the IV administration of 119 cc of Optiray 320, CT scan of the abdomen and pelvis is performed from the lung bases to the proximal femora. Images are reviewed in the axial, sagittal, and coronal planes. IV contrast was administered without complication. A dose lowering technique was utilized adhering to the principles of ALARA. There is streak artifact from the arms which could not be elevated above the abdomen. FINDINGS: Lung bases: The heart is normal in size and without pericardial effusion. The lung bases are clear noting bibasilar scarring/atelectasis. Liver: The contrast-enhanced liver is normal in size and contour. Attenuation is diminished indicating steatosis. Fatty sparing is seen adjacent to the gallbladder fossa. There is no intrahepatic biliary ductal dilatation. The hepatic veins and portal veins are patent. Gallbladder: Unremarkable. Spleen: Normal in size and attenuation. There are calcified splenic granulomas. Pancreas: Unremarkable. Adrenal glands: Unremarkable. Kidneys: The contrast enhanced kidneys are normal in size and without hydronephrosis. The kidneys enhance symmetrically. Scattered subcentimeter cortical hypodensities likely represent cysts but are too small for definitive characterization. Abdominal vasculature: The abdominal aorta is normal in course and caliber noting advanced atherosclerotic calcification. Bowel: There is mild sigmoid diverticulosis without CT evidence of acute diverticulitis. No bowel obstruction is seen. The appendix is not visualized. Peritoneum: There is no intraperitoneal free air or abdominal ascites. There is a large fat-containing hernia in the anterior right upper pelvis seen on axial image #235. Lymphadenopathy: None. Pelvic viscera: The bladder, uterus, and adnexa are normal as visualized. Skeletal structures: The skeletal structures are osteopenic. Minimal degenerative change is seen in the spine. Sclerotic change is noted in the sacroiliac joints and pubic symphysis. No lytic or blastic lesions are seen. IMPRESSION: 1. There is no evidence of solid organ injury in the abdomen or pelvis. 2. No acute infectious or inflammatory findings are identified in the abdomen or pelvis. 3. Hepatic steatosis. 4. Additional findings as above. ACT 112: Negative or not required by law. Electronically signed by: Rojas Garza M.D. 06/14/2025 12:[address] 06/14/25 12:05 CT cervical spine w con CLINICAL HISTORY: fall COMPARISON STUDY: None FINDINGS: No cervical spine fracture or subluxation seen. There are minimal degenerative changes. IMPRESSION: No cervical spine fracture seen. ACT 112: Negative or not required by law. Electronically signed by: Phani Estrada M.D. 06/14/2025 12:47 PM ECG Data Attestation: I personally reviewed and interpreted this ECG as follows: Rate (beats per minute): 81 Rhythm: + atrial fibrillation ECG Intervals/blocks: + Normal QT-c ECG ST segments: + Normal ST segments Additional Comments: QRS 76 MDM Narrative 1204: The patient was evaluated in room B1. A complete history and physical exam was performed Cardiac monitoring: An order was placed for continuous cardiac monitoring. The monitor shows a rate of 80 with atrial fibrilation rhythm interpreted by me No code stroke called as the patient is on Eliquis and the exact last well normal cannot be established by the . Patient is not a TNKase candidate 1245: On reassessment patient is able to move her left upper extremity and is now able to resist gravity. This is markedly improved from her previous exam. 1309: Vital signs stable. Patient continues to be able to move her left upper extremity markedly improved from her initial presentation. Imaging on the CT of the head shows an age-indeterminate probably chronic short segment occlusion with distal reconstitution of the distal right vertebral artery. Severe multifocal stenoses of the intracranial vessels most pronounced in the MCA sylvian branches in the bilateral P2 and P3 segments. Discussed these findings with Dr. Rodriguez on-call [facility] and he agrees patient is not a TNKase candidate and agrees that the patient is not a candidate for endovascular intervention. Dr. Rodriguez states he will evaluate the patient recommends aspirin and Plavix at this time. Patient will be admitted to the hospitalist team for TIA. 1432: While the patient was being evaluated for admission by the admitting team the patient started having extinction to the left side and left upper extremity weakness similar to when she first arrived. Again patient is not a candidate for TNKase as she is on Eliquis. Impression & Plan Brain TIA Discharge Plan Visit Data Chief Complaint: Stroke Alert Stated Complaint: STROKE ALERT ED Provider: Esa Marquis Discharge Problem: Brain TIA Patient Disposition: Admitted As Inpatient Condition: Fair Discharge Instructions Interventions: ED Discharge Assessment Last Done: 06/14/25 16:41
[2025-06-15 06:42] LABS: Hematocrit (blood only) 39.4 % (37.0-47.0); Hemoglobin 14.1 g/dl (12.0-16.0); Immature Granulocytes # (auto) 0.02 K/uL (0.01-0.20); Immature Granulocytes % (auto) 0.3 %; Mean Corpuscular Hemoglobin 31.3 pg (25.0-34.0); Mean Corpuscular Volume 87.6 fL (80.0-100.0); Platelet Count 175 K/uL (130-400); RDW Standard Deviation 38.5 fL (36.4-46.3); Red Blood Count 4.50 M/uL (4.20-5.40); White Blood Count 7.83 K/ul (4.8-10.8)
[2025-06-15 07:05] LABS: Anion Gap 10.0 (3-11); Blood Urea Nitrogen 12.0 mg/dl (6-23); Calcium 8.6 mg/dl (8.6-10.3); Carbon Dioxide 25.0 mmol/L (21-32); Chloride 105.0 mmol/L (98-107); Cholesterol 168.0 mg/dl (0-200); Creatinine Clr Calc Pharmacy 53.8 ml/min; Glucose 128.0 mg/dl (70-99(Fasting)); HDL Cholesterol 38.0 mg/dl; Potassium 3.6 mmol/L (3.5-5.1); Sodium 140.0 mmol/L (136-145); Triglycerides 102.0 mg/dl (0-150)
[2025-06-15 07:50] LABS: Hemoglobin A1C 6.0 % (4.5-5.6)
[2025-06-15 08:07] VITALS: O2SAT 94
[2025-06-15] MEDS ORDERED: DONEPEZIL HCL 5 MG TAB PO SCH (09:00)
[2025-06-15] MEDS: MULTIVITAMIN TAB PO SCH (09:04)
[2025-06-15] MEDS: CITALOPRAM 20 MG TAB PO SCH (09:04)
[2025-06-15] MEDS: ATORVASTATIN 10 MG TAB PO SCH (09:04)
[2025-06-15 11:58] VITALS: BP 133/91; RESP 18; TEMP 98.1
--- NOTE | 2025-06-15 12:42 | Neurology Consultation ---
Date of Consultation June 15, 2025 Assessment & Plan (1) Brain TIA: Verona Rogers is an 79 yo F with dementia presenting with fall and transient L sided weakness now improved/resolved today. TIA is likely but her medical risk factors were optimized. She should remain on the eliquis for stroke prevention. Noted intracranial athero and appropriately on a statin with goal LDL <70. She can follow-up with stroke neurology in 4-6 weeks as an outpatient. -- Continue eliquis 5mg BID -- discontinue DAPT -- Continue liptor 10mg daily -- Neurology follow-up in 4-6 weeks Telehealth Consultation Telehealth Information Telehealth Information: I performed this visit using a real-time telehealth connection between my location and the patients location ([facility]). After connecting through interactive tele-video, patient was identified by name and date of and/or wristband check.Patient (or authorized healthcare area representative) was informed that this was a telemedicine visit and it was being conducted confidentially over secure lines. My office door was closed and no one else was present in the room with me.Patient (or authorized healthcare area representative) provided consent to proceed with the visit, expressed an understanding of privacy and security of the telemedicine visit, and gave permission to have a hospital area representative in the room in order to assist with the visit and to conduct portions of the visit, as needed. I informed the patient (or authorized healthcare area representative) that I reviewed their record and presented the opportunity for them to ask any questions regarding the visit today. The patient agreed to participate. History of Present Illness Reason for Consultation: Fall and L sided weakness Requesting Physician: Dr. Cho Attending Physician: Jaswinder Cho MD History of Present Illness Verona Rogers is an 79 yo F presenting with a fall at home yesterday in the bathroom. Her noticed she was unsteady on her feet and seemed weaker on the L side. She is now moving the L side again but may still be slightly weaker. The patient denies any problems and wants to go home. She is very angry at her and the situation and had not taken the seroquel which typically helps with her dementia associated agitation. Allergies Allergy/AdvReac Type Severity Reaction Status Date / Time No Known Allergies Allergy Verified 12/02/22 22:26 Home Medications Medication Instructions Recorded Confirmed Type multivitamin 1 tab PO DAILY 12/02/22 06/14/25 History apixaban 5 mg tablet (Eliquis) 5 mg PO BID #90 tabs 12/03/22 06/14/25 Rx metoprolol succinate 25 mg 12.5 mg (1/2 x 25 mg) PO DAILY #30 12/03/22 06/14/25 Rx tablet,extended release 24 hr tabs atorvastatin 10 mg tablet 10 mg PO DAILY 06/14/25 06/14/25 History citalopram 20 mg tablet 20 mg PO DAILY 06/14/25 06/14/25 History donepezil 5 mg tablet 5 mg PO DAILY 06/14/25 06/14/25 History quetiapine 25 mg tablet 25 mg PO DAILY 06/14/25 06/14/25 History Patient History Medical History Anxiety Osteoporosis Hypertension Dyslipidemia New onset a-fib Dizziness No pertinent past medical history Surgical History History of esophagogastroduodenoscopy (EGD) History of appendectomy History of colonoscopy No pertinent past surgical history Social History Smoking Status: Never smoker Second Hand Exposure: No; Do You Dip or Chew Tobacco: No; Hx Alcohol Use: No Hx Substance Use: No Preferred Language: Sudanese Communication Ability: Impaired Communication Ability Comment: Dementia Quality Management Coordinator Required: No Beliefs That Will Affect Care: None Current Living Situation: Spouse Other Information That Helps Us Care for You: No Feels Safe at Home: Yes Safety Concerns: Feels Safe At This Time Assistive Devices: None Review of Systems +L sided weakness Physical Exam Awake and alert, disoriented, speech fluent, face symmetric. Antigravity strength throughout with mild pronator drift in the LUE. Results & Data Vital Signs (Past 12 Hours) Vital Signs Temp Pulse Pulse Pulse Resp BP Pulse Ox 06/15/25 11:57 36.7 C 88 18 133/91 94 06/15/25 09:00 89 06/15/25 08:05 36.6 C 89 16 156/86 H 94 06/15/25 02:57 36.9 C 78 18 143/76 H 93 O2 Del Method 06/15/25 11:57 Room Air 06/15/25 09:00 06/15/25 08:05 Room Air 06/15/25 02:57 Room Air Laboratory Results Abnormal lab results 06/14/25 06/14/25 06/15/25 Range/Units 12:17 12:28 06:18 Wilcox # (Auto) 0.64 H (0.11-0.59) K/uL POC Anion Gap 15.0 L (16-25) mmol/L Glucose 154 H 128 H (70-99(Fasting)) mg/dl POC Glucose (other) 146 H (70-99) mg/dl Hemoglobin A1c 6.0 H (4.5-5.6) % Calcium 8.5 L (8.6-10.3) mg/dl POC Ioniz Calcium Erasto 1.10 L (1.12-1.32) mmol/l Diagnostic Findings Chest X-Ray 06/14/25 11:59 XR chest 1V portable CLINICAL HISTORY: neuro deficit, acute stroke suspected COMPARISON STUDY: 12/02/2022 FINDINGS: Stable mild cardiomegaly without pulmonary vascular congestion. No consolidation or pleural effusion. No pneumothorax. IMPRESSION: No acute findings. ACT 112: Negative or not required by law. Electronically signed by: Phani Estrada M.D. 06/14/2025 12:47 PM Head CTA 06/14/25 11:59 CTA ANGIOGRAPHY OF THE HEAD CLINICAL HISTORY: neuro deficit, acute stroke suspected. Fall. Left-sided weakness. COMPARISON STUDY: No previous studies for comparison. TECHNIQUE: Helical axial images of the head were obtained following uneventful intravenous administration of 119 cc of Optiray. Sagittal and coronal reconstructions were viewed as well as maximal intensity projections on an independent 3-D workstation. Automated exposure control was utilized for the study. A dose lowering technique was utilized adhering to the principles of ALARA. CT DOSE: 2291.96 mGy.cm FINDINGS: Please note that the head CT will be reported separately. No acute intracranial hemorrhage, midline shift or mass effect is present. Ventricular system is unremarkable. There are no extra-axial collections. Prominence of the extra-axial spaces is due to atrophy. White matter hypodensity suggests small vessel disease. There is moderate calcified plaque within the cavernous carotids which results in mild stenosis. There is no intracranial aneurysm. Severe multifocal stenoses within the intracranial vessels are noted, including severe stenoses within multiple right-sided sylvian branches as well as the bilateral P2 and P3 segments. Short segment occlusion with distal reconstitution of the distal right vertebral artery is noted. Intracranial portion of the left vertebral artery is patent. The basilar artery is patent. Bilateral posterior communicating arteries and an anterior communicating artery are patent. IMPRESSION: 1. Age indeterminate, but probably chronic, short segment occlusion with distal reconstitution of the distal right vertebral artery. 2. Severe multifocal stenoses within the intracranial vessels, as described above. These are most pronounced within the right MCA sylvian branches and the bilateral P2 and P2 segments. These findings are likely due to atherosclerosis although vasospasm could appear similar. 3. No definite acute large vessel occlusion. No intracranial aneurysm. ACT 112: Negative or not required by law. Electronically signed by: Wiliam Milligan M.D. 06/14/2025 12:45 PM Abdomen/Pelvis CT 06/14/25 12:05 CT SCAN OF THE ABDOMEN AND PELVIS WITH IV CONTRAST CLINICAL HISTORY: Fall. Left-sided weakness. COMPARISON STUDY: No priors TECHNIQUE: Following the IV administration of 119 cc of Optiray 320, CT scan of the abdomen and pelvis is performed from the lung bases to the proximal femora. Images are reviewed in the axial, sagittal, and coronal planes. IV contrast was administered without complication. A dose lowering technique was utilized adhering to the principles of ALARA. There is streak artifact from the arms which could not be elevated above the abdomen. FINDINGS: Lung bases: The heart is normal in size and without pericardial effusion. The lung bases are clear noting bibasilar scarring/atelectasis. Liver: The contrast-enhanced liver is normal in size and contour. Attenuation is diminished indicating steatosis. Fatty sparing is seen adjacent to the gallbladder fossa. There is no intrahepatic biliary ductal dilatation. The hepatic veins and portal veins are patent. Gallbladder: Unremarkable. Spleen: Normal in size and attenuation. There are calcified splenic granulomas. Pancreas: Unremarkable. Adrenal glands: Unremarkable. Kidneys: The contrast enhanced kidneys are normal in size and without hydronephrosis. The kidneys enhance symmetrically. Scattered subcentimeter cortical hypodensities likely represent cysts but are too small for definitive characterization. Abdominal vasculature: The abdominal aorta is normal in course and caliber noting advanced atherosclerotic calcification. Bowel: There is mild sigmoid diverticulosis without CT evidence of acute diver ticulitis. No bowel obstruction is seen. The appendix is not visualized. Peritoneum: There is no intraperitoneal free air or abdominal ascites. There is a large fat-containing hernia in the anterior right upper pelvis seen on axial image #235. Lymphadenopathy: None. Pelvic viscera: The bladder, uterus, and adnexa are normal as visualized. Skeletal structures: The skeletal structures are osteopenic. Minimal degenerative change is seen in the spine. Sclerotic change is noted in the sacroiliac joints and pubic symphysis. No lytic or blastic lesions are seen. IMPRESSION: 1. There is no evidence of solid organ injury in the abdomen or pelvis. 2. No acute infectious or inflammatory findings are identified in the abdomen or pelvis. 3. Hepatic steatosis. 4. Additional findings as above. ACT 112: Negative or not required by law. Electronically signed by: Rojas Garza M.D. 06/14/2025 12:[address] 06/14/25 12:05 CT cervical spine w con CLINICAL HISTORY: fall COMPARISON STUDY: None FINDINGS: No cervical spine fracture or subluxation seen. There are minimal degenerative changes. IMPRESSION: No cervical spine fracture seen. ACT 112: Negative or not required by law. Electronically signed by: Phani Estrada M.D. 06/14/2025 12:47 PM
[2025-06-15] MEDS ORDERED: STROKE PATIENT DISCHARGE STA (13:24)
--- NOTE | 2025-06-15 13:38 | Discharge Summary ---
Date of Service June 15, 2025 Admission HPI Per Admitting Provider 79 year old female with PMH significant for A fib, hypertension, hyperlipidemia, osteoporosis, and dementia who presented to the ED on 06/14/2025 for unsteady gait and a fall at 0930. History obtained from patient's as patient has memory deficits. Patient's reports that overnight he noticed her gait was unsteady. Then this morning, patient was saying she had pain all over and was unsteady walking again and suffered a fall in the bathroom around 0930. She did not hit her head or lose consciousness. Her feels as though her left leg gave out. Reports that she was not able to move her left arm. He reports this is her first fall. He denies any facial droop or speech disturbances. Patient denies visual disturbances, recent illness, fever, chills, cough, cold symptoms, chest pain, SOB, abdominal pain, N/V/D. Admission Exam Per Admitting Provider General/Psych: WD/WN, sitting up in bed, NAD, conversing easily Head: normocephalic, atraumatic Eyes: normal inspection, PERRL, conjunctivae pink ENT: external ear and nose normal, oropharynx normal Neck: normal visual inspection, trachea midline Respiratory: normal respiratory effort, lungs clear to auscultation, no wheeze/rales/rhonchi, no accessory muscle use Cardiovascular: regular rate and rhythm, no murmur/rub/gallop, no JVD Extremities: no cyanosis or clubbing, normal peripheral pulses, no BLE edema Abdomen/GI: normal bowel sounds, soft, nontender Neurologic/MSK: A+Ox1, significant left sided deficits with no sensation appreciated to left face, arm, leg; slight facial droop; left hemianopia; left arm drift/drop; 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 Skin: no rashes, normal color, warm and dry Principal Diagnosis TIA Discharge Exam General/Psych: WD/WN, sitting up in bed, NAD Head: normocephalic, atraumatic Eyes: normal inspection, PERRL ENT: external ear and nose normal Neck: normal visual inspection Respiratory: normal respiratory effort, lungs clear to auscultation, no wheeze/rales/rhonchi, no accessory muscle use Cardiovascular: irregular Extremities: no BLE edema, moves extremities Abdomen/GI: normal bowel sounds, soft, nontender Neurologic/MSK: awake, alert, able to answer some simple questions appropriately, she is able to lift her L arm, able to lift L leg Skin: no rashes, normal color, warm and dry Discharge Data Allergies Allergy/AdvReac Type Severity Reaction Status Date / Time No Known Allergies Allergy Verified 12/02/22 22:26 Consultations 06/14/25 13:16 ED Decision to Admit Stat 06/14/25 17:13 Consult Neurology Routine Ordered Studies 06/14/25 11:59 CT angio head w con Stat IMPRESSION: 1. Age indeterminate, but probably chronic, short segment occlusion with distal reconstitution of the distal right vertebral artery. 2. Severe multifocal stenoses within the intracranial vessels, as described above. These are most pronounced within the right MCA sylvian branches and the bilateral P2 and P2 segments. These findings are likely due to atherosclerosis although vasospasm could appear similar. 3. No definite acute large vessel occlusion. No intracranial aneurysm. CT angio neck with con Stat IMPRESSION: 1. The right vertebral artery either terminates in PICA or has short segment occlusion distally. 2. No other significant narrowing or occlusion seen at the common or internal carotid arteries. CT head/brain wo con Stat IMPRESSION: There is no hemorrhage, mass effect, or evidence of acute territorial ischemia by CT criteria. 06/14/25 12:05 CT abd pelvis IV con only Stat IMPRESSION: 1. There is no evidence of solid organ injury in the abdomen or pelvis. 2. No acute infectious or inflammatory findings are identified in the abdomen or pelvis. 3. Hepatic steatosis. 4. Additional findings as above. CT cervical spine w con Stat FINDINGS: No cervical spine fracture or subluxation seen. There are minimal degenerative changes. IMPRESSION: No cervical spine fracture seen. Hospital Course (1) Stroke-like symptoms: (2) Fall: (3) Atrial fibrillation with controlled ventricular rate: (4) Dementia: (5) Hyperlipidemia: Plan 79 year old female with PMH significant for A fib, hypertension, hyperlipidemia, osteoporosis, and dementia who presented to the ED on 06/14/2025 for unsteady gait and a fall at 0930 and is admitted for stroke work up. Stroke like symptoms Initial presentation with NIH of 13 for left sided deficits that improved (NIH reassessed to be 8) Head CTA revealed severe multifocal stenoses within intracranial vessels likely due to atherosclerosis or vasospasm; no definite large vessel occlusion Neck CTA revealed short segment occlusion of right vertebral artery; no other significant narrowing or occlusion Telestroke advised ASA 324mg and Plavix 300mg Upon further assessment on admission, patient had significant left sided deficits again; NIH 18 Stroke alert called again Telestroke advised MRI and MRA of head/neck - patient could not tolerate MRI Admitted to PCU Obtain echocardiogram - previous in Nov 2022 with EF 60-65%, mild aortic valve sclerosis, mild MR, mild TR Neurology consulted and discussed with Verona Rogers is an 79 yo F with dementia presenting with fall and transient L sided weakness now improved/resolved today. TIA is likely but her medical risk factors were optimized. She should remain on the eliquis for stroke prevention. Noted intracranial athero and appropriately on a statin with goal LDL <70. She can follow-up with stroke neurology in 4-6 weeks as an outpatient. -- Continue eliquis 5mg BID -- discontinue DAPT -- Continue liptor 10mg daily -- Neurology follow-up in 4-6 weeks A1C 6.0% LDL 110 PT/OT/ST consults Pt currently with her at the bedside - plan to take her home. Pt wants to go home. Fall Fall at 0930 with no head strike or LOC No reported injuries or pain Head CT, cervical spine CT, CTAP with no acute findings A fib Continue Eliquis, metoprolol Hyperlipidemia Continue statin Dementia Home Aricept and Seroquel on hold initially, can resume Continue citalopram PCP: Dr. Cora Avendano Total Time Total Time Spent Total Time Spent (In Minutes): 40 Discharge Plan Discharge Items Patient Disposition: Home - Self-Care Reason For Visit: TIA Discharge Diagnosis: TIA Condition on Discharge: Fair Activity: Per Instructions section Non-emergency contact: Primary Care Provider and Neurologist Call non-emergency contact if: you have any medication questions and your symptoms worsen Follow-up/Referrals: Cora Avendano, [Primary Care Provider] - (The office will call you with a follow up appointment.) Diet: Heart Healthy Diet Texture: Dental soft (bite-sized) Addtl Attending Provider Instructions: Follow up with your primary care doctor and neurologist. Continue taking your Eliquis as prescribed and atorvastatin. Pending Studies at Discharge: No Stand-Alone Forms: [employer], Smoking Cessation, Medications to Prevent Stroke Medications and DC Order Prescriptions: Continued multivitamin Tablet 1 tab PO DAILY Patient Comments: 06/14- otc unable to verify Eliquis 5 mg Tablet 5 mg PO BID Qty: 90 0RF metoprolol succinate 25 mg tablet extended release 24 hr 12.5 mg PO DAILY Qty: 30 0RF quetiapine 25 mg tablet 25 mg PO DAILY donepezil 5 mg tablet 5 mg PO DAILY atorvastatin 10 mg tablet 10 mg PO DAILY citalopram 20 mg tablet 20 mg PO DAILY Discharge Orders: Discharge Order (Routine); Ordered 06/15/25 Ordered By: Jaswinder Cho Admission Data Admit Date/Time: 06/14/25 13:38 Attending Provider: Jaswinder Cho Admit Provider: Luis Waters Primary Care Provider: Cora Avendano Other Providers: Luis Waters; Merritt Chavez
[2025-06-15 13:55] VITALS: PULSE 78
--- NOTE | 2025-06-15 23:27 | Electrocardiogram Report ---
Test Reason : Blood Pressure : */* mmHG Vent. Rate : 81 BPM Atrial Rate : * BPM P-R Int : * ms QRS Dur : 76 ms QT Int : 396 ms P-R-T Axes : * -35 57 degrees QTcB Int : 460 ms Atrial fibrillation Left axis deviation Anterolateral infarct (cited on or before 02-Dec-2022) Nonspecific T wave abnormality Abnormal ECG When compared with ECG of 03-Dec-2022 06:20, Questionable change in initial forces of Septal leads Confirmed by Srini Coker ([id number]) on 06/15/2025 11:27:28 PM Referred By: REFERRED SELF Confirmed By: Srini Coker
== END 2025-06-15 15:19 | disposition home or self-care (01) | DRG 69 ==
LOC: ED 12:00 → SUATTDRO 13:38 → 2S 13:38